=== PATIENT | female | born 1955 | race Caucasian/White ===

== ENCOUNTER 2024-03-28 15:48 | Inpatient (IN) | payer MEDICARE, OTHER, SELFPAY ==
[2024-03-28] VITALS (9 sets, daily range): BP systolic 77–115; BP diastolic 32–69; BMI 18.1
[2024-03-28 12:07] LABS: % Basophils 0.5 % (0-2); % Immature Granulocytes 0.2 % (0-0.5); % Monocytes 6.2 % (1.7-9.3); % Neutrophils 69.1 % (42.2-75.2); Absolute Eosinophils 0.4 10^3/uL (0-0.7); Absolute Lymphocytes 1.7 10^3/uL (1.2-3.4); Absolute Monocytes 0.5 10^3/uL (0.1-0.6); Hematocrit 31.9 % (37.0-47.0); Hemoglobin 9.3 g/dL (12.0-16.0); Mean Corp Hgb Conc. 29.2 g/dL (33.0-37.0); Mean Corpuscular Hgb 22.5 pg (27.0-31.0); Mean Corpuscular Volume 77.1 fL (81.0-99.0); Mean Platelet Volume 9.4 fL (7.4-10.4); Nucleated Red Blood Cells % 0 %; Platelet Count 375 10^3/uL (130-400); Red Blood Cell Count 4.14 10^6/uL (4.20-5.40); Red Cell Dist. Width 22.5 % (11.5-14.5); White Blood Cell Count 8.7 10^3/uL (4.8-10.8)
[2024-03-28 12:22] LABS: ALT (SGPT) 18 U/L (0-35); AST (SGOT) 21 U/L (14-36); Albumin 3.9 g/dl (3.5-5.0); Alkaline Phosphatase 104 U/L (38-126); Blood Urea Nitrogen 17 mg/dl (7-17); Calcium 10.2 mg/dl (8.4-10.2); Carbon Dioxide 29 mmol/L (22-30); Chloride 106 mmol/L (98-107); Estimated Creatinine Clearance 59 ml/min; Glucose 130 mg/dl (70-99); Lipase 312 U/L (23-300); Potassium 4.1 mmol/L (3.5-5.1); Sodium 140 mmol/L (135-145); Total Bilirubin 0.2 mg/dl (0.2-1.3); eGFR > 60.00
--- NOTE | 2024-03-28 12:37 | ED.GENMED ---
History of Present Illness
<Shavonne Padilla PA-C - Last Filed: 03/28/24 18:04>
General
Chief Complaint: Abdominal Pain
Source: patient
Exam Limitations: none
Time Seen by Provider: 03/28/24 12:18
Nursing documentation reviewed up to this point in time: agreed with
Travel History
Have you had any contact with someone who has COVID-19?: No
Do you have any symptoms of coronavirus? Fever > 100 degrees, chills, cough, shortness of breath, sore throat, loss of taste or smell, muscle aches, or headache?: No
History of Present Illness
History of Present Illness:
Patient is a 68-year-old female with history of stroke with residual aphasia and hemiparesis presenting to the emergency department via EMS from nursing facility for evaluation of abdominal pain. Patient unable to contribute much to history due to
significant aphasia. She does report some diffuse abdominal pain. Per prison records�patient had bright red stool. Patient has history of constipation.
Patient is able to express hunger during my initial evaluation.
Past History
<Shavonne Padilla PA-C - Last Filed: 03/28/24 18:04>
Past History
ED Past Medical History: CVA, HTN, Psychiatric (Schizophrenia, bipolar) and Other (Developmental delay)
ED Past Surgical History: Orthopedic (Right femur, neck surgery) and Other (Nasal surgery)
Social History
Tobacco: Non-smoker
Living: prison
Review of Systems
<Shavonne Padilla PA-C - Last Filed: 03/28/24 18:04>
Review of Systems
Allergies reviewed?: Yes
Unable to obtain full review of systems at this time due to: non-verbal
All Other Systems: ROS reviewed and negative except as documented in HPI and ROS
Phy Exam
<Shavonne Padilla PA-C - Last Filed: 03/28/24 18:04>
Physical Exam
Physical Exam:
Vitals: Soft BPs, otherwise vital signs stable; afebrile
General: Patient is frail appearing, in no acute distress
Skin: Warm and dry, no rashes or lesions
Head: Normocephalic, atraumatic
Eyes: Sclera nonicteric. EOMs intact. No nystagmus.
Cardiac: Regular rate and rhythm, no murmurs.
Pulm: Normal respiratory effort, no wheezes, rales, rhonchi heard on exam.
Abdomen: Soft, diffuse mild tenderness without rebound or guarding
Rectal: Soft, brown stool somewhat impacted in vault; guaiac positive; no visualized hemorrhoids or fissures
Extremities: No evidence of cyanosis or edema
Neuro: Aphasic, left hemiparesis.
Psychiatric: Normal affect.
Course
<Shavonne Padilla PA-C - Last Filed: 03/28/24 18:04>
Orders/Labs/Results
Orders:
Orders
03/28/24 Breakfast
Clear Liquid
At Your Request: Non-Participating
Does patient need a safe tray?: No
03/28/24 11:34
IV Insert/Care/Rem.- Treatment PRN
03/28/24 11:35
Electrocardiogram (*1) Urgent
Reason for Study: Abdominal Pain
EKG- Treatment ONCE
03/28/24 11:51
Complete Blood Count/With Diff Urgent
Comprehensive Metabolic Panel Urgent
Ferritin Urgent
Comment: ADD
Folate Urgent
Comment: ADD
Iron Urgent
Comment: ADD
Lipase Urgent
Total Iron Binding Urgent
Comment: ADD
Vitamin B12 Urgent
Comment: ADD
03/28/24 12:38
Type+Screen Urgent
03/28/24 12:41
CT Abd/Pel (IV only)-DH only Urgent
Comment: will not tolerate PO contrast
Reason For Exam: diffuse abdominal pain, positive hemoccult
03/28/24 14:03
Polyethylene Glycol Powder [Miralax] 17 grams PO NOW STA
03/28/24 15:30
Admit/Transfer Patient As Directed
Co-Sign Provider:
Level of Care: Inpatient admission
Assign to:: Telemetry
Physician / Group: Mata
Diagnosis: Stercoral Colitis
Reason for Telemetry: Arrhythmia
Date to Stop Telemetry: 03/31/24
Time to Stop Telemetry: 11:00
Reason for Hospitalization: Colorectal consult, IV abx
Expected length of stay greater than two midnights?: Yes
ELOS- Estimated Length of Stay in days: 3
I certify the patient meets the requirements for IP care: Yes
03/28/24 15:35
Code Status As Directed
Resuscitation Status: Do not resuscitate
Based on pt advanced directive or healthcare POA form: Yes
Physician note:: DNR per [place] paperwork
DNR Bracelet Application ONCE
03/28/24 15:46
Urinalysis Reflex To Culture Urgent
Date Specimen was Collected: 03/28/24
Time Specimen was Collected: 11:35
03/28/24 15:48
Phosphate Enema [Fleet Phosphate Enema-Adult] 135 ml RECTAL NOW STA
03/28/24 17:14
Acetaminophen [Tylenol] 650 mg PO Q4HPRN PRN
Ondansetron Injectable [Zofran] 4 mg IV Q6HPRN PRN
03/28/24 17:14
ColoRectal Surgery Consult Routine
Consulting Provider: Reid James
Was physician already notified: Yes
Activity As Directed
Activity Level: Out of Bed- Chair
I&O [Intake/ Output] As Directed
Frequency: q12h
Pneumatic Compression Sleeves As Directed
Type: Knee high
Vital Signs As Directed
Frequency: Per unit guidelines
Weight As Directed
Frequency: Daily
DX Deep Vein Thrombosis Video Routine
03/28/24 18:00
Bisacodyl [Dulcolax] 10 mg PO QPM
[place] Carbonate Regular Rel. [Eskalith Regular Release] 300 mg PO QPM
Olanzapine [Zyprexa] 5 mg PO QPM
Piperacillin/Tazo 3.375 Gram [Zosyn] 3.375 gram in 50 ml IV Q6H
Risperidone [Risperdal] 1 mg PO QPM
03/28/24 20:00
Carbamazepine [Tegretol] 400 mg PO BID
Sennosides [Senokot] 17.2 mg PO BID
03/28/24 22:00
Mirtazapine [Remeron] 15 mg PO HS
03/29/24 06:00
Basic Metabolic Panel IN AM
Complete Blood Count/No Diff IN AM
Magnesium IN AM
TSH Reflex To Free T4 IN AM
Levothyroxine [Synthroid] 75 mcg PO DAILY @ 0600
03/29/24 08:00
Polyethylene Glycol Powder [Miralax] 17 grams PO DAILY
03/29/24 12:00
[place] Carbonate [Eskalith] 150 mg PO NOON
03/31/24 11:00
DC Protocol for Telemetry ONCE
Abnormal Lab Results
03/28/24
11:51
RBC 4.14 L 10^6/uL
(4.20-5.40)
Hgb 9.3 L g/dL
(12.0-16.0)
Hct 31.9 L %
(37.0-47.0)
MCV 77.1 L fL
(81.0-99.0)
MCH 22.5 L pg
(27.0-31.0)
MCHC 29.2 L g/dL
(33.0-37.0)
RDW 22.5 H %
(11.5-14.5)
Lymphocytes % 20.0 L %
(20.5-51.1)
Glucose 130 H mg/dl
(70-99)
% Saturation 10 L %
(20-50)
Lipase 312 H U/L
(23-300)
03/28/24 11:51
03/28/24 11:51
Vital Signs
Initial and Last Documented VS:
Initial Vital Signs
Pulse Resp BP Pulse Ox
82 17 77/61 94
03/28/24 11:35 03/28/24 11:35 03/28/24 11:35 03/28/24 11:35
Last Documented Vital Signs
Temp Pulse Resp BP Pulse Ox
97.6 F 66 17 115/69 99
03/28/24 17:16 03/28/24 17:16 03/28/24 17:16 03/28/24 17:16 03/28/24 17:16
<Raheem Plaza, DO - Last Filed: 03/28/24 13:12>
Orders/Labs/Results
Orders:
Orders
03/28/24 Breakfast
Clear Liquid
At Your Request: Non-Participating
Does patient need a safe tray?: No
03/28/24 11:34
IV Insert/Care/Rem.- Treatment PRN
03/28/24 11:35
Electrocardiogram (*1) Urgent
Reason for Study: Abdominal Pain
EKG- Treatment ONCE
03/28/24 11:51
Complete Blood Count/With Diff Urgent
Comprehensive Metabolic Panel Urgent
Ferritin Urgent
Comment: ADD
Folate Urgent
Comment: ADD
Iron Urgent
Comment: ADD
Lipase Urgent
Total Iron Binding Urgent
Comment: ADD
Vitamin B12 Urgent
Comment: ADD
03/28/24 12:38
Type+Screen Urgent
03/28/24 12:41
CT Abd/Pel (IV only)-DH only Urgent
Comment: will not tolerate PO contrast
Reason For Exam: diffuse abdominal pain, positive hemoccult
03/28/24 14:03
Polyethylene Glycol Powder [Miralax] 17 grams PO NOW STA
03/28/24 15:30
Admit/Transfer Patient As Directed
Co-Sign Provider:
Level of Care: Inpatient admission
Assign to:: Telemetry
Physician / Group: Mata
Diagnosis: Stercoral Colitis
Reason for Telemetry: Arrhythmia
Date to Stop Telemetry: 03/31/24
Time to Stop Telemetry: 11:00
Reason for Hospitalization: Colorectal consult, IV abx
Expected length of stay greater than two midnights?: Yes
ELOS- Estimated Length of Stay in days: 3
I certify the patient meets the requirements for IP care: Yes
03/28/24 15:35
Code Status As Directed
Resuscitation Status: Do not resuscitate
Based on pt advanced directive or healthcare POA form: Yes
Physician note:: DNR per [place] paperwork
DNR Bracelet Application ONCE
03/28/24 15:46
Urinalysis Reflex To Culture Urgent
Date Specimen was Collected: 03/28/24
Time Specimen was Collected: 11:35
03/28/24 15:48
Phosphate Enema [Fleet Phosphate Enema-Adult] 135 ml RECTAL NOW STA
03/28/24 17:14
Acetaminophen [Tylenol] 650 mg PO Q4HPRN PRN
Ondansetron Injectable [Zofran] 4 mg IV Q6HPRN PRN
03/28/24 17:14
ColoRectal Surgery Consult Routine
Consulting Provider: Reid James
Was physician already notified: Yes
Activity As Directed
Activity Level: Out of Bed- Chair
I&O [Intake/ Output] As Directed
Frequency: q12h
Pneumatic Compression Sleeves As Directed
Type: Knee high
Vital Signs As Directed
Frequency: Per unit guidelines
Weight As Directed
Frequency: Daily
DX Deep Vein Thrombosis Video Routine
03/28/24 18:00
Bisacodyl [Dulcolax] 10 mg PO QPM
[place] Carbonate Regular Rel. [Eskalith Regular Release] 300 mg PO QPM
Olanzapine [Zyprexa] 5 mg PO QPM
Piperacillin/Tazo 3.375 Gram [Zosyn] 3.375 gram in 50 ml IV Q6H
Risperidone [Risperdal] 1 mg PO QPM
03/28/24 20:00
Carbamazepine [Tegretol] 400 mg PO BID
Sennosides [Senokot] 17.2 mg PO BID
03/28/24 22:00
Mirtazapine [Remeron] 15 mg PO HS
03/29/24 06:00
Basic Metabolic Panel IN AM
Complete Blood Count/No Diff IN AM
Magnesium IN AM
TSH Reflex To Free T4 IN AM
Levothyroxine [Synthroid] 75 mcg PO DAILY @ 0600
03/29/24 08:00
Polyethylene Glycol Powder [Miralax] 17 grams PO DAILY
03/29/24 12:00
[place] Carbonate [Eskalith] 150 mg PO NOON
03/31/24 11:00
DC Protocol for Telemetry ONCE
Abnormal Lab Results
03/28/24
11:51
RBC 4.14 L 10^6/uL
(4.20-5.40)
Hgb 9.3 L g/dL
(12.0-16.0)
Hct 31.9 L %
(37.0-47.0)
MCV 77.1 L fL
(81.0-99.0)
MCH 22.5 L pg
(27.0-31.0)
MCHC 29.2 L g/dL
(33.0-37.0)
RDW 22.5 H %
(11.5-14.5)
Lymphocytes % 20.0 L %
(20.5-51.1)
Glucose 130 H mg/dl
(70-99)
% Saturation 10 L %
(20-50)
Lipase 312 H U/L
(23-300)
03/28/24 11:51
03/28/24 11:51
Vital Signs
Initial and Last Documented VS:
Initial Vital Signs
Pulse Resp BP Pulse Ox
82 17 77/61 94
03/28/24 11:35 03/28/24 11:35 03/28/24 11:35 03/28/24 11:35
Last Documented Vital Signs
Temp Pulse Resp BP Pulse Ox
97.6 F 66 17 115/69 99
03/28/24 17:16 03/28/24 17:16 03/28/24 17:16 03/28/24 17:16 03/28/24 17:16
<Shavonne Padilla PA-C - Last Filed: 03/28/24 18:04>
MDM/Problems Addressed
Differential Diagnosis Includes:
Not limited to: Internal/external hemorrhoid, diverticulosis, malignancy, anal fissure, gastric ulcer, constipation, bowel obstruction
MDM/Problems Addressed:
68-year-old female with significant aphasia and left-sided hemiparesis status post stroke [facility] with abdominal pain and report of bright red stool. Patient unable to contribute much to history due to aphasia. Exam as above.
Abdomen soft with diffuse mild tenderness. Rectal exam does show soft, brown stool which was guaiac positive. Attempted rectal disimpaction with small amount of stool removed, the patient did not tolerate well and had to stop. Patient did have
soft BPs on arrival with appropriate improvement following IV fluids. Otherwise vital signs are stable.
Labs noted. She is anemic with a hemoglobin of 9.3, although she does appear to have some degree of chronic anemia. in comparison to prior labs, hemoglobin is increased from last hemoglobin approximately 6 months ago. MCV of 71�likely an iron
deficiency anemia possibly due to lower GI bleed given guaiac positive stool. Otherwise no clinically significant abnormalities. Will check CT abdomen given poor history. I suspect abdominal pain is likely related to large amount of stool in
rectum and associated constipation. Given anemia and guaiac positive stool�will plan to admit patient to hospitalist for minor lower GI bleed and further hemoglobin trending. CT pending.
CT shows large rectal stool bolus with findings suggesting possible developing stercoral colitis. Patient will be admitted to hospitalist for hemoglobin trending due to lower GI bleed and management of constipation. She may possibly require
antibiotics for colitis. Discussed with hospitalist.
Chronic conditions affecting care:
Prior CVA resulting in aphasia
Acute Exacerbation and/or Progression of Chronic Illness:
N/A
<Shavonne Padilla PA-C - Last Filed: 03/28/24 18:04>
*Radiology
Radiology exam reviewed: radiology read reviewed
*Pulse Oximetry
Patient hypoxic: no
*EKG
Interpreted by ED Provider?: Yes
EKG Intrepretation Date: 03/28/24
Interpretation: normal
Comparison EKG: changes noted
Heart Rate: 79
Rate: normal
Rhythm: sinus
QRS Pattern: low voltage
Ischemia: no ischemia
*Carroting Machine Offbearer Interpretation
Rate: Carroting Machine Offbearer- N/A
*Critical Care Note
Total Time (30-74mins, 75-104mins- exclusive of procedures): Not Applicable
Data Reviewed
Review of Other/Old Records Reveals: Labs and Records
Source: ambulance crew and previous hospital records
<Shavonne Padilla PA-C - Last Filed: 03/28/24 18:04>
Patient Management
Discussion with other providers: Hospitalist
Escalation/DeEscalation of care consider admission/obs:
Patient with history of bright red blood per rectum�although hemoglobin appears similar to baseline, guaiac positive stool will admit for probable minor lower GI bleeding hemoglobin
ED Attending Note
<Shavonne Padilla PA-C - Last Filed: 03/28/24 18:04>
-
Portions of this chart may have been created with voice recognition software.� Occasional wrong word or��sound alike� substitutions may have occurred due to the inherent limitations of voice recognition software.
<Raheem Plaza DO - Last Filed: 03/28/24 13:12>
ED Attending Note
Patient seen and examined by attending physician: Yes
I performed the substantive portion of visit, reviewed & personally made and approve the management plan that is documented in note by myself or NASEEM.: Yes
ED Attending Note:
I have seen and evaluated the patient with a [id number] encounter. I have spoken to the advance practicer provider and involved in the medical history, the physical exam, medical decision making.
Evaluation and management service: agree unless noted differently below.
Results interpretation: agree unless noted differently below.
Focused HPI: 68-year-old female presenting with abdominal pain and bright red rectal bleeding per EMS.
Physical exam: On exam, patient does have aphasia which is in her prior medical history. She is able to communicate somewhat. She does states she is hungry. Abdomen soft. Minimal suprapubic to left lower quadrant pain. No rebound. Rectal exam
performed showing brown stool that is guaiac
Medical Decision Making: Given the bright red rectal bleeding that is now showing brown, patient likely has diverticulosis versus internal hemorrhoid. Given the mild abdominal pain, will obtain CT abdomen/pelvis. Patient is baseline anemic. Will
likely admit on the basis of abdominal pain and rectal bleeding
Discharge Plan
Departure
Patient Disposition: Admit
Date of Disposition: 03/28/24
Time of Disposition: 13:59
Presentation/result/management discussed w/ accepting MD/DO: Hospitalist
Discharge Problem:
Acute lower GI bleeding
Interventions
Interventions:
*Risk Screen - Suicide Last Done: 03/28/24 11:35
*General Assessment Last Done: 03/28/24 11:35
*Neglect/Abuse Screening Last Done: 03/28/24 11:35
ED- Fall Risk Assessment Last Done: 03/28/24 11:52
*Nursing Disposition Last Done: 03/28/24 16:49
AZ-Stmuuv-Sqaljdaosq Assessment Last Done: 03/28/24 11:52
Discharge Date and Time
Discharge Date/Time: 03/28/24 16:50
[2024-03-28 13:18] LABS: Anisocytosis Slight
[2024-03-28 13:54] LABS: Normal RBC Morphology No
[2024-03-28] MEDS: MIRALAX 17 GRAMS PO ×2 (14:38→21:31)
--- NOTE | 2024-03-28 15:39 | HPS.HSE ---
Family Physician
-
Family Physician: Mu Flores
Chief Complaint
-
Abdominal Pain
History of Present Illness
Patient is a 68 y/o female past medical history of ischemic stroke with residual aphasia and left hemiparesis who presents with abdominal pain. Patient is a limited historian due to significant aphasia. Apparently she as sent from the [facility] for
complaints of abdominal pain, and staff noted bright red blood per rectum. CT scan in ED showed stool burden with stercoral colitis. ED staff found soft brown stool on exam. Upon my evaluation she is able to tell me she is hungry and asked to
refill her water cup.
Medical History
Past Medical History
Past Medical History: Reports Other
Additional Past Medical History:
Ischemic Stroke with Residual Aphasia and Left Hemiplegia
Dysphagia
Seizure Disorder
Mood Disorder
Hypothyroidism
Past Surgical History: Reports Other
Additional Past Surgical History:
Right Hip ORIF
Neck Surgery
Social History
Unable to obtain full social history at this time due to: Patient Non-verbal
Living: Group Home
Family History
Family History: Unable to Obtain
Allergies / Home Medications
Allergies reflects when Allergies were last updated in [facility].
Home Medications with original date entered in [facility]
Allergy/Medication List:
Allergies
Allergy/AdvReac Type Severity Reaction Status Date / Time
aspirin Allergy Unknown Verified 08/12/23 13:22
ciprofloxacin [From Cipro] Allergy Unknown Verified 08/12/23 13:22
ciprofloxacin HCl Allergy Unknown Verified 08/12/23 13:22
[From Cipro]
divalproex sodium Allergy Unknown Verified 08/12/23 13:22
[From Depakote]
valproic acid Allergy Unknown Verified 08/12/23 13:22
adrenergic blocking agents Allergy Unknown Uncoded 03/21/21 15:12
Home Medications
thiamine HCl (vitamin B1) 100 mg tablet 100 mg PO NOON Supplement 04/11/14
acetaminophen 325 mg tablet 650 mg PO Q6HPRN PRN elevated temperature>100 05/08/16
bisacodyl 10 mg rectal suppository (OneLAX Bisacodyl) 10 mg NE DAILYPRN PRN if MOM ineffective 05/08/16
bisacodyl 5 mg tablet,delayed release 5 mg PO QPM Constipation 05/08/16
acetaminophen 325 mg tablet 650 mg (2 x 325 mg) PO Q4HPRN PRN mild pain ##0 05/12/16
levothyroxine 75 mcg tablet 75 mcg PO DAILY Thyroid 03/21/21
lithium carbonate 150 mg capsule 150 mg PO NOON Mental Health/Anxiety 03/21/21
mirtazapine 15 mg tablet 15 mg PO HS Mental Health/Anxiety 03/21/21
risperidone 1 mg tablet 1 mg PO QPM Mental Health/Anxiety 03/21/21
carbamazepine 200 mg tablet 400 mg PO BID Seizures 08/12/23
docusate sodium 100 mg capsule (Colace) 100 mg PO BID Constipation 08/12/23
ferrous sulfate 325 mg (65 mg iron) tablet 325 mg PO AC Supplement 08/12/23
loperamide 2 mg tablet (Imodium A-D) 2 mg PO Q6HPRN PRN diarrhea 08/12/23
magnesium oxide 400 mg PO NOON Supplement 08/12/23
metronidazole 1 % topical cream 1 applic topical [id number] PRN rash 08/12/23
olanzapine 5 mg tablet 5 mg PO QPM Mental Health/Anxiety 08/12/23
propranolol 20 mg tablet 20 mg PO DAILY Blood Pressure 08/12/23
Eucerin 1 applic topical Q6HPRN PRN dry skin 03/28/24
calcium carbonate 1,000 mg PO Q8HPRN PRN indigestion 03/28/24
carbamide peroxide 6.5 % ear drops (Debrox) 5 drp LEFT EAR BID 03/28/24
cholecalciferol (vitamin D3) 50 mcg (2,000 unit) tablet 50 mcg PO NOON 03/28/24
cyanocobalamin (vitamin B-12) 500 mcg tablet 500 mcg PO DAILY 03/28/24
lithium carbonate 300 mg tablet 300 mg PO QPM 03/28/24
magnesium hydroxide 400 mg/5 mL oral suspension (Milk of Magnesia) 30 ml PO [id number] PRN constipation 03/28/24
polyethylene glycol 3350 17 gram oral powder packet (Miralax) 17 g PO DAILY 03/28/24
sennosides 8.6 mg-docusate sodium 50 mg tablet (Senna-S) 1 tab-cap PO NOON 03/28/24
sennosides 8.6 mg-docusate sodium 50 mg tablet (Senna-S) 2 tab-cap PO QPM 03/28/24
Review of Systems
-
Unable to obtain full review of systems at this time due to: Patient Non-verbal
Physical Exam
Vital Signs
Vital Signs
Pulse Resp BP Pulse Ox
73 9 107/51 99
03/28/24 13:30 03/28/24 13:30 03/28/24 13:00 03/28/24 13:30
Physical Exam
General: No Apparent Distress and Comfortable
HEENT: Anicteric and Moist mucous membranes
Respiratory: Clear and Non Labored Respirations
Cardiac: S1/S2 and Regular Rhythm
GI: Soft, Tender (Left lower quadrant without rebound or guarding) and Other (Hyperactive bowel sounds)
Rectal: Deferred by Provider
Musculoskeletal: No Clubbing, No Cyanosis and Other (Left upper ext contracture)
Skin: Warm and Dry
Neuro: Awake, Alert and Other (Unable to assess orientation due to aphasia; Left hemiparesis)
Laboratory Results
-
03/28/24 11:51
03/28/24 11:51
Laboratory Results
Total Bilirubin 0.2 mg/dl (0.2-1.3) 03/28/24 11:51
AST 21 U/L (14-36) 03/28/24 11:51
ALT 18 U/L (0-35) 03/28/24 11:51
Alkaline Phosphatase 104 U/L (38-126) 03/28/24 11:51
Lipase 312 U/L (23-300) H 03/28/24 11:51
Data Reviewed
-
CT Scan: Report Reviewed by me
Lab Data: Labs Reviewed by me
Impression/Plan
-
Stercoral Colitis
-Consult Colorectal Surgery
-Continue Zosyn
-Allow clear liquids
-Give Fleet Enema Now
-Increase bowel regimen
Chronic Anemia
-Check iron, ferritin, TIBC, Folate, Vit B12
Ischemic Stroke with Residual Aphasia, Left Hemiplegia and Dysphagia
-Patient maintained on mechanical soft solids with thin liquids
Seizure Disorder
-Continue carbamazepine
Mood Disorder
-Continue mirtazapine, olanzapine, risperidone and lithium
Hypertension
-Hold propranolol
Hypothyroidism
-Continue levothyroxine
DVT proph: SCDs
Code Status: DNR per [place] paperwork
--- NOTE | 2024-03-28 17:30 | PTCARENOTE ---
Rec'd Pt From ED to Room 431, [address]. Pt pulled over from stretcher to bed. Pt is AOOx2-3, prior CVA with aphasia but able to identify herself, her month/day and hospital. Oriented to room to with call leo in place.
[2024-03-28 17:46] LABS: Iron 41 ug/dl (37-170)
[2024-03-28 17:47] LABS: Ferritin 14.6 ng/ml (11.1-264.0)
[2024-03-28 17:56] LABS: Percent Saturation 10 % (20-50); Total Iron Binding Capacity 375 ug/dl (265-497)
--- NOTE | 2024-03-28 18:03 | W.PN.UPDATE ---
Addendum entered and electronically signed by Michael August MD 03/28/24 18:25:
Hold off on gastroenterology consult for now.
Original Note:
Update Note
Progress Note Update
This note serves as an addendum to the H&P by Melissa Newell PA-C, on March 28, 2024.
68 y/o female with past medical history of ischemic stroke with residual aphasia and left hemiparesis who presented with abdominal pain. Patient is a limited historian due to significant aphasia. Apparently she was sent from the [facility] for
complaints of abdominal pain, and staff noted bright red blood per rectum. CT scan in ED showed stool burden with stercoral colitis. ED staff found soft brown stool on exam. Patient was nonverbal.
Vital Signs
Afebrile
SBP initially in the 70s, improved to 110s -- as per ER note, IV fluids given with improvement in blood pressure
Oxygen saturation 90s on room air
HR and RR okay
Physical Exam
General: No Apparent Distress and Comfortable
HEENT: Normocephalic
Respiratory: Clear and Non Labored Respirations
Cardiac: S1/S2 and Regular Rhythm
GI: Soft, Tender (Left lower quadrant without rebound or guarding) and Other (Hyperactive bowel sounds)
Musculoskeletal: No Cyanosis and Other (Left upper ext contracture)
Skin: Warm and Dry
Neuro: Awake, Alert and Other (Unable to assess orientation due to aphasia; Left hemiparesis)
Assessment/Plan
Stercoral Colitis
Fecal Occult Blood Positive
Bright Red Blood Per Rectum, prior to arrival, as per patient's long-term
-Consulted Colorectal Surgery, recommendations appreciated
-Gastroenterology consulted, recommendations appreciated
-Continue Zosyn
-Allow clear liquids
-Hold bowel regimen until surgery eval to avoid causing increased pressure of the stool onto the colon
-Surgery will try to disimpact tonight
Chronic Anemia
-Check iron, ferritin, TIBC, Folate, Vit B12
Ischemic Stroke with Residual Aphasia, Left Hemiplegia and Dysphagia
-Patient maintained on mechanical soft solids with thin liquids
Seizure Disorder
-Continue carbamazepine
Mood Disorder
-Continue mirtazapine, olanzapine, risperidone and lithium
Hypertension
-Hold propranolol
Hypothyroidism
-Continue levothyroxine
DVT proph: SCDs
Code Status: DNR per [place] paperwork
[2024-03-28 18:18] LABS: Folate 5.9 ng/ml (2.76-20); Vitamin B12 421 pg/ml (239-931)
[2024-03-28] MEDS: RISPERDAL 1 MG PO (18:24)
[2024-03-28] MEDS: ZYPREXA 5 MG PO (18:24)
[2024-03-28] MEDS: FLEET PHOSPHATE ENEMA-ADULT 135 ML RECTAL (18:24)
[2024-03-28] MEDS: ZOSYN 50 IV (18:25)
[2024-03-28] MEDS: ESKALITH 300 MG PO (18:26)
--- NOTE | 2024-03-28 18:59 | CON.CRS ---
Consultation
-
Performing Provider: Reid James MD
Medical History
-
History of Present Illness:
Patient is a 68-year-old female with developmental delay, [facility] resident, CVA (resultant deficit of aphasia), HTN, schizophrenia, bipolar, hypothyroid who [facility] from the [facility] with severe constipation. History is largely from the
EMR as the patient is dysphasic with a component of developmental delay. She denies abdominal pain. Per the record, she was [facility] from the [facility] with abdominal pain, constipation and some blood in the stool. In the ED, her WBC was 8.7, Cr
0.7, CT showing large burden of stool within the rectum with developing stercoral colitis. She is afebrile and normal vital signs.
Past Medical History
Past Medical History: Other (As above)
Past Surgical History: Other (Right femur, neck surgery, no surgery)
Social History
Living: Halfway
Family History
Family History: Unable to Obtain
Allergies / Home Medications
Allergy/AdvReac Type Severity Reaction Status Date / Time
aspirin Allergy Unknown Verified 08/12/23 13:22
ciprofloxacin [From Cipro] Allergy Unknown Verified 08/12/23 13:22
ciprofloxacin HCl Allergy Unknown Verified 08/12/23 13:22
[From Cipro]
divalproex sodium Allergy Unknown Verified 08/12/23 13:22
[From Depakote]
valproic acid Allergy Unknown Verified 08/12/23 13:22
adrenergic blocking agents Allergy Unknown Uncoded 03/21/21 15:12
�Medication �Instructions �Recorded �Confirmed �Type
thiamine HCl (vitamin B1) 100 mg 100 mg PO NOON Supplement 04/11/14 03/28/24 History
tablet
acetaminophen 325 mg tablet 650 mg PO Q6HPRN PRN elevated 05/08/16 03/28/24 History
temperature>100
bisacodyl 10 mg rectal suppository 10 mg [place] DAILYPRN PRN if MOM 05/08/16 03/28/24 History
(OneLAX Bisacodyl) ineffective
bisacodyl 5 mg tablet,delayed 5 mg PO QPM Constipation 05/08/16 03/28/24 History
release
acetaminophen 325 mg tablet 650 mg (2 x 325 mg) PO Q4HPRN PRN 05/12/16 03/28/24 Rx
mild pain ##0
levothyroxine 75 mcg tablet 75 mcg PO DAILY Thyroid 03/21/21 03/28/24 History
lithium carbonate 150 mg capsule 150 mg PO NOON Mental 03/21/21 03/28/24 History
Health/Anxiety
mirtazapine 15 mg tablet 15 mg PO HS Mental Health/Anxiety 03/21/21 03/28/24 History
risperidone 1 mg tablet 1 mg PO QPM Mental Health/Anxiety 03/21/21 03/28/24 History
carbamazepine 200 mg tablet 400 mg PO BID Seizures 08/12/23 03/28/24 History
docusate sodium 100 mg capsule 100 mg PO BID Constipation 08/12/23 03/28/24 History
(Colace)
ferrous sulfate 325 mg (65 mg 325 mg PO AC Supplement 08/12/23 03/28/24 History
iron) tablet
loperamide 2 mg tablet (Imodium 2 mg PO Q6HPRN PRN diarrhea 08/12/23 03/28/24 History
A-D)
magnesium oxide 400 mg PO NOON Supplement 08/12/23 03/28/24 History
metronidazole 1 % topical cream 1 applic topical [id number] PRN rash 08/12/23 03/28/24 History
olanzapine 5 mg tablet 5 mg PO QPM Mental Health/Anxiety 08/12/23 03/28/24 History
propranolol 20 mg tablet 20 mg PO DAILY Blood Pressure 08/12/23 03/28/24 History
Eucerin 1 applic topical Q6HPRN PRN dry 03/28/24 03/28/24 History
skin
calcium carbonate 1,000 mg PO Q8HPRN PRN indigestion 03/28/24 03/28/24 History
carbamide peroxide 6.5 % ear drops 5 drp LEFT EAR BID ear wax removal 03/28/24 03/28/24 History
(Debrox)
cholecalciferol (vitamin D3) 50 50 mcg PO NOON Supplement 03/28/24 03/28/24 History
mcg (2,000 unit) tablet
cyanocobalamin (vitamin B-12) 500 500 mcg PO DAILY Supplement 03/28/24 03/28/24 History
mcg tablet
lithium carbonate 300 mg tablet 300 mg PO QPM Mental Health/Anxiety 03/28/24 03/28/24 History
magnesium hydroxide 400 mg/5 mL 30 ml PO [id number] PRN constipation 03/28/24 03/28/24 History
oral suspension (Milk of Magnesia)
polyethylene glycol 3350 17 gram 17 g PO DAILY Constipation 03/28/24 03/28/24 History
oral powder packet (Miralax)
sennosides 8.6 mg-docusate sodium 1 tab-cap PO NOON Constipation 03/28/24 03/28/24 History
50 mg tablet (Senna-S)
sennosides 8.6 mg-docusate sodium 2 tab-cap PO QPM Constipation 03/28/24 03/28/24 History
50 mg tablet (Senna-S)
Review of Systems
-
Unable to obtain full review of systems at this time due to: Other (Patient with developmental delay and poor historian)
A 10 point review of systems was completed, and was negative except as per HPI.
Physical Exam
Vital Signs
Temp 97.6 F 03/28/24 17:16
Pulse 66 03/28/24 17:16
Resp Rate 17 03/28/24 17:16
Blood pressure 115/69 03/28/24 17:16
SaO2 99 03/28/24 17:16
03/27/24 03/28/24 03/29/24
06:59 06:59 06:59
Actual Weight 47.899 kg
Body Mass Index (BMI) 18.1
Lab Results / Allergies
03/28/24 11:51
03/28/24 11:51
WBC 8.7 10^3/uL (4.8-10.8) 03/28/24 11:51
Hgb 9.3 g/dL (12.0-16.0) L 03/28/24 11:51
Hct 31.9 % (37.0-47.0) L 03/28/24 11:51
Plt Count 375 10^3/uL (130-400) 03/28/24 11:51
Abs Immat Gran (auto) 0.0 10^3/uL (0-0.05) 03/28/24 11:51
Neutrophils % 69.1 % (42.2-75.2) 03/28/24 11:51
Allergy/AdvReac Type Severity Reaction Status Date / Time
aspirin Allergy Unknown Verified 08/12/23 13:22
ciprofloxacin [From Cipro] Allergy Unknown Verified 08/12/23 13:22
ciprofloxacin HCl Allergy Unknown Verified 08/12/23 13:22
[From Cipro]
divalproex sodium Allergy Unknown Verified 08/12/23 13:22
[From Depakote]
valproic acid Allergy Unknown Verified 08/12/23 13:22
adrenergic blocking agents Allergy Unknown Uncoded 03/21/21 15:12
Physical Exam
General: Well Developed, Well Nourished, No Apparent Distress and Other
HEENT: Normocephalic, Tracheotomy and Other (Adentulous)
GI: Soft, Non Tender, Non Distended and Other (No rebound or guarding)
Rectal: Brown (No masses palpated within the anal canal, good sphincter tone, no gross blood) and Other (Performed disimpaction, removed significant amount of hard impacted stool with no signs of gross blood; nurse at the bedside as grades 1 6 tutor)
Skin: Warm and Dry
Neuro: Awake and Alert
Data Reviewed
-
CT Scan: Image Personally Visualized and interpreted, Discussed with Physician and Discussed with Patient
Labs: Labs Reviewed by me and Discussed with Physician
Assessment / Plan
-
68-year-old female with developmental delay, [facility] resident, CVA (resultant deficit of aphasia), HTN, schizophrenia, bipolar, hypothyroid who [facility] the [facility] with severe const[facility]. History is largely from the EMR as the
patient is dysphasic with a component of developmental delay. She states that she has bladder pain and is in no distress. Per the record, she was [facility] the [facility] with abdominal pain, constipation and some blood in the stool. In the ED,
her WBC was 8.7, Cr 0.7, CT showing large burden of stool within the rectum with developing stercoral colitis. AFVSS
� 'Developing' stercoral colitis per CT
�S/p disimpaction with moderate amount hard of stool removed, no blood
�Give fleets enema and MiraLAX tonight; continue Colace twice daily
�Abdominal exam reassuring; no surgical intervention currently indicated
�Continue IV Zosyn
� Okay for clears
� Okay for DVT PPx
� Appreciate hospitalist
--- NOTE | 2024-03-28 19:31 | W.PN.UPDATE ---
Update Note
Progress Note Update
Colace 100 mg PO BID and Miralax daily added to Bowel regimen per Dr. Cordova's instructions
[2024-03-28 20:15] LABS: Lactic Acid 1.3 mmol/L (0.7-2.0)
[2024-03-28] MEDS: REMERON 15 MG PO (21:31)
[2024-03-28] MEDS: COLACE 100 MG PO (21:31)
[2024-03-28] MEDS: TEGRETOL 400 MG PO (21:31)
[2024-03-29] MEDS: ZOSYN 50 IV ×3 (00:11→12:31)
[2024-03-29 03:07] VITALS: BP 99/60
[2024-03-29] MEDS: SYNTHROID 75 MCG PO (05:59)
[2024-03-29 06:00] VITALS: BMI 17.9
[2024-03-29 08:00] VITALS: BP 115/66
--- NOTE | 2024-03-29 09:02 | W.PN.CRS1 ---
Today's Communication / Plan
-
continue bowel regimen
okay to resume diet
will s/o
Assessment/Plan
-
68-year-old female with developmental delay, [facility] resident, CVA (resultant deficit of aphasia), HTN, schizophrenia, bipolar, hypothyroid who presents from the [facility] with severe constipation
1. Vitals normal, labs pending.
2. Benign abdominal exam. Had bowel movements overnight.
3. No plans for surgery or interventions at this time.
4. Would recommend continuing in the following: Colace BID, Miralax daily, anal suppository in PM, enemas PRN.
5. Okay to resume home diet.
6. Will sign off, please contact us if further issues arise.
Subjective Data
Subjective Data
Date of Service: March 29, 2024
Patient states she feels well. She has no complaints. She is giving the 'thumbs up' sign when asked how she feels. Per RN, she had two large bowel movements overnight.
Objective Data
-
Vital Signs
Temp Pulse Resp BP Pulse Ox
98.0 F 79 20 99/60 93
03/29/24 03:07 03/29/24 03:07 03/29/24 03:07 03/29/24 03:07 03/29/24 03:07
Intake & Output
03/28/24 03/29/24 03/30/24
06:59 06:59 06:59
Intake Total 820 / 820
Balance 820 / 820
Intake:
Oral fluids 720 / 720
IV fluids (Total) 50 / 50
IV piggybacks 50 / 50
Other:
How many times incontinent 3
SATURATED amount urine
Physical Exam
-
General: No Acute Distress and AOx3
Abdomen: Soft, Non Distended and Non Tender
Skin: Warm and Dry
[2024-03-29] MEDS: TEGRETOL 400 MG PO (10:00)
[2024-03-29] MEDS: MIRALAX 17 GRAMS PO (10:01)
[2024-03-29] MEDS: COLACE 100 MG PO (10:01)
[2024-03-29 10:55] LABS: Hematocrit 30.7 % (37.0-47.0); Hemoglobin 8.8 g/dL (12.0-16.0); Mean Corp Hgb Conc. 28.7 g/dL (33.0-37.0); Mean Corpuscular Hgb 22.8 pg (27.0-31.0); Mean Corpuscular Volume 79.5 fL (81.0-99.0); Mean Platelet Volume 10.1 fL (7.4-10.4); Platelet Count 375 10^3/uL (130-400); Red Blood Cell Count 3.86 10^6/uL (4.20-5.40); Red Cell Dist. Width 22.6 % (11.5-14.5); White Blood Cell Count 10.1 10^3/uL (4.8-10.8)
[2024-03-29 11:00] VITALS: BP 103/59
[2024-03-29 11:09] LABS: Blood Urea Nitrogen 11 mg/dl (7-17); Calcium 9.7 mg/dl (8.4-10.2); Carbon Dioxide 24 mmol/L (22-30); Chloride 106 mmol/L (98-107); Estimated Creatinine Clearance 51 ml/min; Glucose 185 mg/dl (70-99); Magnesium 2.2 mg/dl (1.6-2.3); Potassium 4.3 mmol/L (3.5-5.1); Sodium 139 mmol/L (135-145); eGFR > 60.00
[2024-03-29 11:35] LABS: TSH Reflex To Free T4 3.12 uIU/ml (0.47-4.68)
[2024-03-29 12:03] LABS: Urine Albumin Negative (Neg - Trace); Urine Bilirubin Negative (Negative); Urine Character Clear (Clear); Urine Color Yellow; Urine Glucose Negative (Negative); Urine Ketone Negative (Negative); Urine Leukocyte Negative (Negative); Urine Nitrite Negative (Negative); Urine Occult Blood Negative (Negative); Urine Specific Gravity 1.005 (<1.030); Urine Urobilinogen Negative (Neg - 1+)
[2024-03-29] MEDS: ESKALITH 150 MG PO (12:31)
--- NOTE | 2024-03-29 13:06 | W.PN.HOSP.TC ---
Today's Communication/Plan
-
Discharge today
Assessment / Plan
Assessment / Plan
Physical Exam
General: No Apparent Distress and Comfortable
HEENT: Normocephalic
Respiratory: Clear and Non Labored Respirations
Cardiac: S1/S2 and Regular Rhythm
GI: Soft, Nontender. Positive bowel sounds.
Musculoskeletal: No Cyanosis and Other (Left upper ext contracture)
Skin: Warm and Dry
Neuro: Awake, Alert and Other (Unable to assess orientation due to aphasia; Left hemiparesis)
Assessment/Plan
'Developing' stercoral colitis per CT; now having bowel function status post disimpaction with moderate amount hard of stool removed, no blood
Fecal Occult Blood Positive
Bright Red Blood Per Rectum, prior to arrival, as per patient's shelter
-Consulted Colorectal Surgery, recommendations appreciated
-Gastroenterology consulted, recommendations appreciated
-Diet as tolerated -- low residue
-Surgery performed disimpaction
-Continue bowel regimen: Colace twice daily, MiraLAX daily, Dulcolax nightly as needed
-Augmentin 875 mg Q12H for 6 more days given allergies to Cipro
Chronic Anemia
-Recheck iron studies outpatient
-Recheck Vitamin B12 outpatient
Ischemic Stroke with Residual Aphasia, Left Hemiplegia and Dysphagia
-Patient maintained on mechanical soft solids with thin liquids
Seizure Disorder
-Continue carbamazepine
Mood Disorder
-Continue mirtazapine, olanzapine, risperidone and lithium
Hypertension
-Hold propranolol
Hypothyroidism
-Continue levothyroxine
DVT proph: SCDs
Code Status: DNR per OR paperwork
More than 30 minutes spent in discharge including
Final examination of the patient
Summarizing hospital stay
Instructions for continuing care to all relevant caregivers
Preparation of discharge records, prescriptions, and referral forms
Total time spent (in minutes): 40
Anticipated Discharge: Today
Subjective/Interval History
-
Date of Service: March 29, 2024
Patient was seen and examined. She appeared to be enjoying her breakfast and denied any new complaints, although she was nonverbal.
Objective Data
-
Labs:
Laboratory Results
03/29/24
09:55
WBC 10.1
Hgb 8.8 L
Hct 30.7 L
Plt Count 375
Sodium 139
Potassium 4.3
Chloride 106
Carbon Dioxide 24
BUN 11
Creatinine 0.8
Glucose 185 H
Calcium 9.7
Vital Signs:
Vital Signs
Temp Pulse Resp BP Pulse Ox
98 F 81 16 103/59 95
03/29/24 11:00 03/29/24 11:00 03/29/24 11:00 03/29/24 11:00 03/29/24 11:00
I&O
03/28/24 03/29/24 03/30/24
06:59 06:59 06:59
Intake Total 820 / 820
Balance 820 / 820
--- NOTE | 2024-03-29 14:17 | W.DS.TRANS ---
DC Summary - Lead Handler
-
Discharge Instructions:
Discharge Diagnosis/Procedures 'Developing' stercoral colitis per CT; now
having bowel function status post disimpaction
with moderate amount hard of stool removed, no
blood
Fecal Occult Blood Positive
Bright Red Blood Per Rectum, prior to arrival,
as per patient's jail
Chronic Anemia
Ischemic Stroke with Residual Aphasia, Left
Hemiplegia and Dysphagia
Seizure Disorder
Mood Disorder
Hypertension
Hypothyroidism
Diet As tolerated
Activity As tolerated
Driving Restrictions No driving
Other Services PT,OT
Instructions:
Stand-Alone Forms:
Changes to Home Medications: Yes
Discharge Medications:
DC Medications w/original date entered in [employer]
thiamine HCl (vitamin B1) 100 mg tablet 100 mg PO NOON Supplement 04/11/14
acetaminophen 325 mg tablet 650 mg PO Q6HPRN PRN elevated temperature>100 05/08/16
levothyroxine 75 mcg tablet 75 mcg PO DAILY Thyroid 03/21/21
lithium carbonate 150 mg capsule 150 mg PO NOON Mental Health/Anxiety 03/21/21
mirtazapine 15 mg tablet 15 mg PO HS Mental Health/Anxiety 03/21/21
risperidone 1 mg tablet 1 mg PO QPM Mental Health/Anxiety 03/21/21
carbamazepine 200 mg tablet 400 mg PO BID Seizures 08/12/23
docusate sodium 100 mg capsule (Colace) 100 mg PO BID Constipation 08/12/23
ferrous sulfate 325 mg (65 mg iron) tablet 325 mg PO AC Supplement 08/12/23
loperamide 2 mg tablet (Imodium A-D) 2 mg PO Q6HPRN PRN diarrhea 08/12/23
magnesium oxide 400 mg PO NOON Supplement 08/12/23
metronidazole 1 % topical cream 1 applic topical [id number] PRN rash 08/12/23
olanzapine 5 mg tablet 5 mg PO QPM Mental Health/Anxiety 08/12/23
propranolol 20 mg tablet 20 mg PO DAILY Blood Pressure 08/12/23
Eucerin 1 applic topical Q6HPRN PRN dry skin 03/28/24
calcium carbonate 1,000 mg PO Q8HPRN PRN indigestion 03/28/24
carbamide peroxide 6.5 % ear drops (Debrox) 5 drp LEFT EAR BID ear wax removal 03/28/24
cholecalciferol (vitamin D3) 50 mcg (2,000 unit) tablet 50 mcg PO NOON Supplement 03/28/24
cyanocobalamin (vitamin B-12) 500 mcg tablet 500 mcg PO DAILY Supplement 03/28/24
lithium carbonate 300 mg tablet 300 mg PO QPM Mental Health/Anxiety 03/28/24
magnesium hydroxide 400 mg/5 mL oral suspension (Milk of Magnesia) 30 ml PO [id number] PRN constipation 03/28/24
sennosides 8.6 mg-docusate sodium 50 mg tablet (Senna-S) 1 tab-cap PO NOON Constipation 03/28/24
sennosides 8.6 mg-docusate sodium 50 mg tablet (Senna-S) 2 tab-cap PO QPM Constipation 03/28/24
amoxicillin 875 mg-potassium clavulanate 125 mg tablet 1 tab PO Q12H 6 days #12 tabs 03/29/24
bisacodyl 10 mg rectal suppository (Dulcolax (bisacodyl)) 10 mg [place] HSPRN PRN Constipation #50 ea 03/29/24
polyethylene glycol 3350 17 gram oral powder packet (Miralax) 17 g PO DAILY Constipation #0 ea 03/29/24
Home Medication Changes
Amoxicillin-Pot Clavulanate is a new medication.
Note the changes in Bisacodyl.
Extra Tylenol stopped.
Pending Results: Yes
Additional Pending Results:
MRSA screen results
Total time spent discharging patient (in min): 40
--- NOTE | 2024-03-29 14:44 | CM ---
gas well drilling manager reviewed patient's chart chart and patient was admitted from [facility], patient required assistance x 2 at [facility], w/c at times, [facility] has been at [facility] for many years, case planner attempted to contact
emergency contact for patient but there was no answer.
Plan; Patient to return to [facility] today.
Report [phone]
[2024-03-29 16:00] VITALS: BP 121/68
--- NOTE | 2024-04-01 08:12 | W.DCSUMMARY ---
Discharge Summary
Discharge Data
Date of Admission: 03/28/24
Date of Discharge: 03/29/24
Total time spent discharging patient (in min): 40
-
Pending Results: Yes
Additional Pending Results:
MRSA screen results
Hospital Course
68 y/o female with past medical history of ischemic stroke with residual aphasia and left hemiparesis who presented with abdominal pain. Patient was a limited historian due to significant aphasia. Apparently she was sent from the [facility]
Home for complaints of abdominal pain, and staff said they noted bright red blood per rectum. CT scan in emergency department showed stool burden with stercoral colitis (however please see the full CT imaging report for full details). Patient was
started on antibiotics. Colorectal surgery was consulted and their impression was 'Developing' stercoral colitis per CT imaging; they performed disimpaction with good results. Patient was started on a bowel regimen and was stable for discharge the
next day.
Discharge Plan
-
Patient Disposition: [facility]/SNF
Discharge Diagnosis/Procedures: 'Developing' stercoral colitis per CT; now having bowel function status post disimpaction with moderate amount hard of stool removed, no blood
Fecal Occult Blood Positive
Bright Red Blood Per Rectum, prior to arrival, as per patient's jail
Chronic Anemia
Ischemic Stroke with Residual Aphasia, Left Hemiplegia and Dysphagia
Seizure Disorder
Mood Disorder
Hypertension
Hypothyroidism
Condition: Fair
Diet: As tolerated
Activity: As tolerated
Driving Restrictions: No driving
Other Services: PT and OT
Referrals:
Mu Flores I., DO [Family Provider] - in one to two days
Additional Discharge Medication Instructions: Amoxicillin-Pot Clavulanate is a new medication.
Note the changes in Bisacodyl.
Extra Tylenol stopped.
Prescriptions:
New
bisacodyl [Dulcolax (bisacodyl)] 10 mg suppository
10 mg CA HSPRN PRN (Reason: Constipation) Qty: 50 0RF
amoxicillin-pot clavulanate 875-125 mg tablet
1 tab PO Q12H 6 Days Qty: 12 0RF
Continued
thiamine HCl (vitamin B1) 100 MG tablet
100 mg PO NOON
acetaminophen 325 MG tablet
650 mg PO Q6HPRN MDD 3000 mg PRN (Reason: elevated temperature>100)
lithium carbonate 150 MG capsule
150 mg PO NOON
levothyroxine 75 MCG tablet
75 mcg PO DAILY
mirtazapine 15 MG tablet
15 mg PO HS
risperidone 1 MG tablet
1 mg PO QPM
olanzapine 5 mg Tablet
5 mg PO QPM
loperamide [Imodium A-D] 2 mg Tablet
2 mg PO Q6HPRN PRN (Reason: diarrhea)
carbamazepine 200 mg Tablet
400 mg PO BID
ferrous sulfate 325 mg (65 mg iron) Tablet
325 mg PO AC
docusate sodium [Colace] 100 mg Capsule
100 mg PO BID
propranolol 20 mg Tablet
20 mg PO DAILY
metronidazole 1 % Cream
1 applic TOPICAL [id number] PRN (Reason: rash)
magnesium oxide 400 mg magnesium Tablet
400 mg PO NOON
sennosides-docusate sodium [Senna-S] 8.6-50 mg Tablet
1 tab-cap PO NOON
sennosides-docusate sodium [Senna-S] 8.6-50 mg Tablet
2 tab-cap PO QPM
magnesium hydroxide [Milk of Magnesia] 400 mg/5 mL Suspension
30 ml PO [id number] PRN (Reason: constipation)
cyanocobalamin (vitamin B-12) 500 mcg Tablet
500 mcg PO DAILY
Debrox 6.5 % Drops
5 drp LEFT EAR BID
Patient Comments:
03/28/2024, start date: 03/16/2024; end date: 04/06/2024.
calcium carbonate 500 mg calcium (1,250 mg) Tablet,Chewable
1,000 mg PO Q8HPRN PRN (Reason: indigestion)
lithium carbonate 300 mg Tablet
300 mg PO QPM
cholecalciferol (vitamin D3) 50 mcg (2,000 unit) Tablet
50 mcg PO NOON
Eucerin cream
1 applic topical Q6HPRN PRN (Reason: dry skin)
polyethylene glycol 3350 [Miralax] 17 gram Powder In Packet
17 g PO DAILY Qty: 0 0RF
Patient Comments:
03/28/2024, hold for loose stool.
Discontinued
bisacodyl [OneLAX Bisacodyl] 10 MG suppository
10 mg [place] DAILYPRN PRN (Reason: if MOM ineffective)
bisacodyl 5 MG tablet,delayed release (DR/EC)
5 mg PO QPM
acetaminophen 325 MG tablet
650 mg PO Q4HPRN MDD 3000 mg PRN (Reason: mild pain) Qty: 0 0RF
Discharge Orders:
Discharge Patient (As Directed); Ordered 03/29/24
Ordered By: Michael August
Discharge Date and Time
Discharge Date/Time: 03/29/24 18:30
Print Language: [id number]
== END 2024-03-29 18:30 | DRG 392 ==
LOC: 4 WEST ACU 15:48
PROVIDERS: Physician Assistant Medical; ADMITTING PHYSICIAN Hospitalist; CONSULT PHYSICIAN Surgery; EMERGENCY PHYSICIAN Student in an Organized Health Care Education/Training Program; FAMILY PHYSICIAN Internal Medicine
DX: K52.89 Other specified noninfective gastroenteritis and colitis (principal); I69.354 Hemiplegia and hemiparesis following cerebral infarction affecting left non-dominant side; Z66 Do not resuscitate; D64.9 Anemia, unspecified; I69.320 Aphasia following cerebral infarction; I10 Essential (primary) hypertension; E03.9 Hypothyroidism, unspecified; F31.9 Bipolar disorder, unspecified; G40.909 Epilepsy, unspecified, not intractable, without status epilepticus
CPT/HCPCS: 74177; 80048; 80053; 81003; 82607; 82728; 82746; 83540; 83550; 83605; 83690; 83735; 84443; 85025; 85027; 86850; 86900; 86901; 87070; 93005; 99285; Q9967

== ENCOUNTER → 2024-05-31 09:48 | Outpatient (REF) | payer MEDICARE, OTHER, SELFPAY ==
[2024-05-31 11:57] VITALS: BP 110/58
== END ==
LOC: RADI 09:48
PROVIDERS: ATTENDING PHYSICIAN Internal Medicine
DX: E06.3 Autoimmune thyroiditis (principal)
CPT/HCPCS: 88173; 10005

== ENCOUNTER 2025-08-21 22:05 | Inpatient (IN) | payer MEDICARE, OTHER, SELFPAY ==
[2025-08-21 19:14] VITALS: BP 100/42
[2025-08-21 20:06] LABS: Hematocrit 39.0 % (37.0-47.0); Hemoglobin 11.9 g/dL (12.0-16.0); Mean Corp Hgb Conc. 30.5 g/dL (33.0-37.0); Mean Corpuscular Volume 95.4 fL (81.0-99.0); Nucleated Red Blood Cells % 0 %; Platelet Count 643 10^3/uL (130-400); Red Cell Dist. Width 14.5 % (11.5-14.5)
[2025-08-21 20:14] LABS: ALT (SGPT) 27 U/L (0-35); AST (SGOT) 21 U/L (14-36); Albumin 3.8 g/dl (3.5-5.0); Alkaline Phosphatase 103 U/L (38-126); Blood Urea Nitrogen 48 mg/dl (7-17); Calcium 9.6 mg/dl (8.4-10.2); Carbon Dioxide 26 mmol/L (22-30); Chloride 116 mmol/L (98-107); Glucose 122 mg/dl (70-99); Potassium 4.8 mmol/L (3.5-5.1); Sodium 150 mmol/L (135-145); Total Protein 7.1 g/dl (6.3-8.2); eGFR 44.79
[2025-08-21 20:17] VITALS: BP 114/46
[2025-08-21] MEDS: NSS 1000 IV (20:24)
[2025-08-21 20:31] LABS: Urine Character Clear (Clear)
--- NOTE | 2025-08-21 20:31 | ED.GENMED ---
History of Present Illness
General
Chief Complaint: Change in Mental Status
Source: patient and records
Exam Limitations: non verbal-adult and altered mental status
Time Seen by Provider: 08/21/25 19:13
Nursing documentation reviewed up to this point in time: agreed with
History of Present Illness
History of Present Illness:
69-year-old female from local facility presents with decreased responsiveness, she has a history of mental illness seizures, prior stroke, here she is minimally verbal seems to follow simple commands,
Past History
Past History
ED Past Medical History: CVA, HTN, Psychiatric (Schizophrenia, bipolar) and Other (Developmental delay)
ED Past Surgical History: Orthopedic (Right femur, neck surgery) and Other (Nasal surgery)
Social History
Tobacco: Non-smoker
Alcohol: None
Drug: None
Personal: Single
Living: long term
Employment: Not employed
Review of Systems
Review of Systems
All Other Systems: Not applicable
Phy Exam
Physical Exam
Physical Exam:
Physical Exam
General: Chronically ill-appearing
Neck: Dry
Heart: s1/s2 regular rate and rhythm, no murmur. equal radial pulses.
Lungs: No
Abdomen: Flat stomach
Neuro: Follows simple commands, left-sided plegia
Skin: no rash
Psychiatric: Unable to assess
Extremities: no edema.
Course
Orders/Labs/Results
Orders:
Orders
08/21/25 19:12
Electrocardiogram (*1) Urgent
Reason for Study: Fatigue / Weakness
08/21/25 19:[address] [CT Head W/o Iv Contrast] Urgent
Comment:
Reason For Exam: change in mental status
EKG- Treatment ONCE
08/21/25 19:21
Complete Blood Count/With Diff Urgent
08/21/25 19:45
Comprehensive Metabolic Panel Urgent
[place] Urgent
Comment: ADD ON
08/21/25 20:16
Add On- LAB Urgent
Tests Added?: lithium, tegretol
0.9% Sodium Chloride 1000 ml [Nss] 1,000 ml IV BOLUS
08/21/25 20:21
Urinalysis Reflex To Culture Urgent
Date Specimen was Collected: 08/21/25
Time Specimen was Collected: 20:19
08/21/25 20:27
Tegretol (Carbamazepine) Urgent
08/21/25 20:33
CR Chest - 2 Views Urgent
Comment:
Reason For Exam: Dehydration
Abnormal Lab Results
08/21/25 08/21/25
19:21 19:45
WBC 19.0 H 10^3/uL
(4.8-10.8)
RBC 4.09 L 10^6/uL
(4.20-5.40)
Hgb 11.9 L g/dL
(12.0-16.0)
MCHC 30.5 L g/dL
(33.0-37.0)
Plt Count 643 H 10^3/uL
(130-400)
Abs Immat Gran (auto) 0.1 H 10^3/uL
(0-0.05)
Absolute Neuts (auto) 16.4 H 10^3/uL
(1.4-6.5)
Absolute Lymphs (auto) 1.1 L 10^3/uL
(1.2-3.4)
Absolute Monos (auto) 1.2 H 10^3/uL
(0.1-0.6)
Immature Gran % 0.6 H %
(0-0.5)
Neutrophils % 86.3 H %
(42.2-75.2)
Lymphocytes % 5.5 L %
(20.5-51.1)
Sodium 150 H mmol/L
(135-145)
Chloride 116 H mmol/L
(98-107)
BUN 48 H mg/dl
(7-17)
Creatinine 1.3 H mg/dL
(0.6-1.0)
Glucose 122 H mg/dl
(70-99)
08/21/25 19:21
08/21/25 19:45
Vital Signs
Initial and Last Documented VS:
Initial Vital Signs
Temp Pulse Resp BP Pulse Ox
97.4 F 88 18 100/42 97
08/21/25 19:14 08/21/25 19:14 08/21/25 19:14 08/21/25 19:14 08/21/25 19:14
Last Documented Vital Signs
Temp Pulse Resp BP Pulse Ox
99.4 F 91 18 100/42 97
08/21/25 20:18 08/21/25 19:30 08/21/25 19:30 08/21/25 19:14 08/21/25 20:33
MDM/Problems Addressed
Differential Diagnosis Includes:
Dehydration stroke UTI [place] abnormality infection
MDM/Problems Addressed:
Infection dehydration confusion
Chronic conditions affecting care: Neurological disorder
Acute Exacerbation and/or Progression of Chronic Illness: Neurological disorder
*Radiology
Radiology exam reviewed: radiology read reviewed
*Pulse Oximetry
SaO2: 97
Oxygen Mode of Delivery: Room air
Patient hypoxic: no
*EKG
Interpreted by ED Provider?: Yes
Interpretation: normal
Comparison EKG: no comparison EKG present
Heart Rate: 78
Rate: normal
Rhythm: sinus
Ischemia: non-specific ST changes
*Diesel Locomotive Crane Operator Interpretation
Rate: normal
Interpretation: normal
Heart Rate: 78
Rhythm: sinus
*Critical Care Note
Total Time (30-74mins, 75-104mins- exclusive of procedures): Not Applicable
Update Note
Update Note:
Update labs are noted afebrile urine pending will check chest x-ray CT completed and pending also check drug levels
ED Attending Note
-
Portions of this chart may have been created with voice recognition software.� Occasional wrong word or��sound alike� substitutions may have occurred due to the inherent limitations of voice recognition software.
Discharge Plan
Departure
Patient Disposition: Admit
Date of Disposition: 08/21/25
Time of Disposition: 20:34
Admit to: Med/Surg
Presentation/result/management discussed w/ accepting MD/DO: Hospitalist
Patient with high blood pressure during this ER visit?: No
Condition: Fair
Discharge Problem:
Dehydration with hypernatremia
Prescriptions:
No Action
thiamine HCl (vitamin B1) 100 MG tablet
100 mg PO NOON
acetaminophen 325 MG tablet
650 mg PO Q6HPRN MDD 3000 mg PRN (Reason: elevated temperature>100)
lithium carbonate 150 MG capsule
150 mg PO NOON
levothyroxine 75 MCG tablet
75 mcg PO DAILY
mirtazapine 15 MG tablet
15 mg PO HS
risperidone 1 MG tablet
1 mg PO QPM
olanzapine 5 mg Tablet
5 mg PO QPM
loperamide [Imodium A-D] 2 mg Tablet
2 mg PO Q6HPRN PRN (Reason: diarrhea)
carbamazepine 200 mg Tablet
400 mg PO BID
ferrous sulfate 325 mg (65 mg iron) Tablet
325 mg PO AC
docusate sodium [Colace] 100 mg Capsule
100 mg PO BID
propranolol 20 mg Tablet
20 mg PO DAILY
metronidazole 1 % Cream
1 applic TOPICAL [id number] PRN (Reason: rash)
magnesium oxide 400 mg magnesium Tablet
400 mg PO NOON
sennosides-docusate sodium [Senna-S] 8.6-50 mg Tablet
1 tab-cap PO NOON
sennosides-docusate sodium [Senna-S] 8.6-50 mg Tablet
2 tab-cap PO QPM
magnesium hydroxide [Milk of Magnesia] 400 mg/5 mL Suspension
30 ml PO [id number] PRN (Reason: constipation)
cyanocobalamin (vitamin B-12) 500 mcg Tablet
500 mcg PO DAILY
Debrox 6.5 % Drops
5 drp LEFT EAR BID
Patient Comments:
03/28/2024, start date: 03/16/2024; end date: 04/06/2024.
calcium carbonate 500 mg calcium (1,250 mg) Tablet,Chewable
1,000 mg PO Q8HPRN PRN (Reason: indigestion)
lithium carbonate 300 mg Tablet
300 mg PO QPM
cholecalciferol (vitamin D3) 50 mcg (2,000 unit) Tablet
50 mcg PO NOON
Eucerin cream
1 applic topical Q6HPRN PRN (Reason: dry skin)
bisacodyl [Dulcolax (bisacodyl)] 10 mg suppository
10 mg MA HSPRN PRN (Reason: Constipation) Qty: 50 0RF
polyethylene glycol 3350 [Miralax] 17 gram Powder In Packet
17 g PO DAILY Qty: 0 0RF
Patient Comments:
03/28/2024, hold for loose stool.
Referrals:
Janel Lazar MD [Family Provider]
Interventions
Interventions:
*Risk Screen - Suicide Last Done: 08/21/25 19:14
*General Assessment Last Done: 08/21/25 19:14
*Neglect/Abuse Screening Last Done: 08/21/25 19:14
*ED COVID-19 Vaccine History Last Done: 08/21/25 19:38
*ED Influenza Vaccine History Last Done: 08/21/25 19:14
ED- Cardiac Assessment Last Done: 08/21/25 19:35
ED- Neurological Assessment Last Done: 08/21/25 19:35
Discharge Date and Time
Print Language: FRISIAN
[2025-08-21 20:43] LABS: Urine Red Blood Cell 0-2 /HPF (0-2); Urine White Cell 50-60 /HPF (0-5)
[2025-08-21 20:43] LABS: Lithium 2.1 mmol/L (0.6-1.2)
[2025-08-21 21:00] VITALS: BP 105/65
--- NOTE | 2025-08-21 21:03 | HPS.HSE ---
Family Physician
-
Family Physician: Janel Lazar
Chief Complaint
-
responsiveness
History of Present Illness
HPI
69F Res of local fascility HX Developmental delay, ischemic CVA with dysphagia, residual Aphasia, Left Hemiplegia , HTN, Schizophrenia, bipola, Seizure Disorde , hypothyroidism, Stercoral colitis, LGIB, chronic Anemia seen at ER
- decreased responsiveness,
- minimally verbal seems to follow simple commands
At ER:
Na 150
Medical History
Past Medical History
Past Medical History: Reports Other
Additional Past Medical History:
Ischemic Stroke with Residual Aphasia and Left Hemiplegia
Dysphagia
Seizure Disorder
Mood Disorder
Hypothyroidism
Past Surgical History: Reports Other
Additional Past Surgical History:
Right Hip ORIF
Neck Surgery
Social History
Unable to obtain full social history at this time due to: Patient Non-verbal
Living: Penitentiary
Family History
Family History: Unable to Obtain
Allergies / Home Medications
Allergies reflects when Allergies were last updated in [employer].
Home Medications with original date entered in [employer]
Allergy/Medication List:
Allergies
Allergy/AdvReac Type Severity Reaction Status Date / Time
aspirin Allergy Unknown Verified 08/12/23 13:22
ciprofloxacin [From Cipro] Allergy Unknown Verified 08/12/23 13:22
ciprofloxacin HCl Allergy Unknown Verified 08/12/23 13:22
[From Cipro]
divalproex sodium Allergy Unknown Verified 08/12/23 13:22
[From Depakote]
valproic acid Allergy Unknown Verified 08/12/23 13:22
adrenergic blocking agents Allergy Unknown Uncoded 03/21/21 15:12
Home Medications
thiamine HCl (vitamin B1) 100 mg tablet 100 mg PO NOON Supplement 04/11/14
acetaminophen 325 mg tablet 650 mg PO Q6HPRN PRN elevated temperature>100 05/08/16
bisacodyl 10 mg rectal suppository (OneLAX Bisacodyl) 10 mg DC DAILYPRN PRN if MOM ineffective 05/08/16
bisacodyl 5 mg tablet,delayed release 5 mg PO QPM Constipation 05/08/16
acetaminophen 325 mg tablet 650 mg (2 x 325 mg) PO Q4HPRN PRN mild pain ##0 05/12/16
levothyroxine 75 mcg tablet 75 mcg PO DAILY Thyroid 03/21/21
lithium carbonate 150 mg capsule 150 mg PO NOON Mental Health/Anxiety 03/21/21
mirtazapine 15 mg tablet 15 mg PO HS Mental Health/Anxiety 03/21/21
risperidone 1 mg tablet 1 mg PO QPM Mental Health/Anxiety 03/21/21
carbamazepine 200 mg tablet 400 mg PO BID Seizures 08/12/23
docusate sodium 100 mg capsule (Colace) 100 mg PO BID Constipation 08/12/23
ferrous sulfate 325 mg (65 mg iron) tablet 325 mg PO AC Supplement 08/12/23
loperamide 2 mg tablet (Imodium A-D) 2 mg PO Q6HPRN PRN diarrhea 08/12/23
magnesium oxide 400 mg PO NOON Supplement 08/12/23
metronidazole 1 % topical cream 1 applic topical [id number] PRN rash 08/12/23
olanzapine 5 mg tablet 5 mg PO QPM Mental Health/Anxiety 08/12/23
propranolol 20 mg tablet 20 mg PO DAILY Blood Pressure 08/12/23
Eucerin 1 applic topical Q6HPRN PRN dry skin 03/28/24
calcium carbonate 1,000 mg PO Q8HPRN PRN indigestion 03/28/24
carbamide peroxide 6.5 % ear drops (Debrox) 5 drp LEFT EAR BID 03/28/24
cholecalciferol (vitamin D3) 50 mcg (2,000 unit) tablet 50 mcg PO NOON 03/28/24
cyanocobalamin (vitamin B-12) 500 mcg tablet 500 mcg PO DAILY 03/28/24
lithium carbonate 300 mg tablet 300 mg PO QPM 03/28/24
magnesium hydroxide 400 mg/5 mL oral suspension (Milk of Magnesia) 30 ml PO [id number] PRN constipation 03/28/24
polyethylene glycol 3350 17 gram oral powder packet (Miralax) 17 g PO DAILY 03/28/24
sennosides 8.6 mg-docusate sodium 50 mg tablet (Senna-S) 1 tab-cap PO NOON 03/28/24
sennosides 8.6 mg-docusate sodium 50 mg tablet (Senna-S) 2 tab-cap PO QPM 03/28/24
Review of Systems
-
Unable to obtain full review of systems at this time due to: Other (AMS )
Physical Exam
Vital Signs
Vital Signs
Temp Pulse Resp BP Pulse Ox
99.4 F 91 18 100/42 97
08/21/25 20:18 08/21/25 19:30 08/21/25 19:30 08/21/25 19:14 08/21/25 20:33
Physical Exam
General: No Apparent Distress
HEENT: Anicteric
Respiratory: Non Labored Respirations
Cardiac: S1/S2 and Regular Rhythm
GI: Soft and Other (Hyperactive bowel sounds)
Rectal: Deferred by Provider
Skin: Warm and Dry
Neuro: Other (Unable to assess orientation due to aphasia and lethgargy )
Laboratory Results
-
08/21/25 19:21
08/21/25 19:45
Laboratory Results
Total Bilirubin 0.5 mg/dl (0.2-1.3) 08/21/25 19:45
AST 21 U/L (14-36) 08/21/25 19:45
ALT 27 U/L (0-35) 08/21/25 19:45
Alkaline Phosphatase 103 U/L (38-126) 08/21/25 19:45
Data Reviewed
-
Lab Data: Labs Reviewed by me
Old Records: Reviewed
Impression/Plan
-
08/21/25
19:14 08/21/25
19:14
Temp 97.4 F
Pulse 88
Resp Rate 18
Blood pressure 100/42 100/42
SaO2 97
Oxygen Mode of Delivery Room air
08/21/25 08/21/25
19:21 19:45
Hgb 11.9 L
Plt Count 643 H
Sodium 150 H
Potassium 4.8
Chloride 116 H
03/29/24 08/21/25
09:55 19:45
Carbon Dioxide 24 26
Creatinine 0.8 1.3 H
eGFR > 60.00 44.79
08/21/25
19:45
[place] 2.1 H*
08/21/25
20:21
Leukocyte Esterase Rfl 3+ A
Urine WBC (Reflex) 50-60 A
Urine Bacteria (Reflex) Many A
HCT:
Stable chronic findings. No acute intracranial abnormality.
Last hospitalist admission: Date of Admission: 03/28/24 - Date of Discharge: 03/29/24
PDX:
Stercoral colitis
LGIB
Chronic Anemia
Ischemic Stroke with Residual Aphasia, Left Hemiplegia and Dysphagia
Seizure Disorder
Mood Disorder
Hypertension
Hypothyroidism
ASSESSMENT & PLAN
Multifactorial origins mediated hypoactive TME with decreased wakefulness and minimally verbal seems to follow simple commands
Likely precipitants for TME : [place] toxicity , concerning for UTI, hypernatremia with FWD 1.7 due to dehydration, CARA, Overmedications
- NEG HCT
- POA UA for UTI - Tx with IV CFTZ and f/u UCx
- NEG HCT
- Hypernatremia with 1. 7 L FWD due to dehydration - correct with D5W @ 80/H - rate of correction not more that 6 meq over 12 hrs
- [place] toxicity - Hold [place] - check [place] level in am
- Hold Tegretol for now Pending Tegretol level
- At risk for aspiration - hold all POP ananth for now
- Speech to eval
- FU Na and Cr in AM
- Use Hypoglycemic protocol from [facility]
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
Chronic Anemia
HX Ischemic Stroke with Residual Aphasia, Left Hemiplegia and Dysphagia
Seizure Disorder - pending carbamazepine evel and holding carbamazepine
Mood Disorder - hold PO mirtazapine, olanzapine, risperidone and lithium for now
Hypertension - hold propranolol
Hypothyroidism - hold levothyroxine
DVT Px: SCDs
Code Status: DNR per [facility] paperwork
IP TLM
[2025-08-21 21:50] VITALS: BP 116/68
[2025-08-21 22:00] VITALS: BP 107/53
[2025-08-21] MEDS: D5W 1000 IV ×2 (22:03→22:47)
--- NOTE | 2025-08-21 22:25 | PTCARENOTE ---
Patient arrived to unit via stretcher and pulled over. Patient is nonverbal and does not show any signs of discomfort. Call leo within reach.
[2025-08-21 23:00] VITALS: BP 123/71
[2025-08-21] MEDS: ROCEPHIN 1000 MG IV (23:07)
[2025-08-21] MEDS: STERILE WATER FOR INJECTION 10 ML IV (23:07)
[2025-08-21 23:56] LABS: Blood Urea Nitrogen 44 mg/dl (7-17); Calcium 9.5 mg/dl (8.4-10.2); Carbon Dioxide 26 mmol/L (22-30); Chloride 117 mmol/L (98-107); Glucose 131 mg/dl (70-99); Potassium 4.4 mmol/L (3.5-5.1); Sodium 151 mmol/L (135-145); eGFR 44.79
[2025-08-22 00:22] LABS: Glucose - Point of Care 168 mg/dl (70-99)
[2025-08-22 03:00] VITALS: BP 131/77
[2025-08-22 05:56] LABS: Glucose - Point of Care 119 mg/dl (70-99)
[2025-08-22 07:05] VITALS: BP 123/66
[2025-08-22 07:17] LABS: Hematocrit 39.3 % (37.0-47.0); Hemoglobin 11.5 g/dL (12.0-16.0); Mean Corp Hgb Conc. 29.3 g/dL (33.0-37.0); Mean Corpuscular Volume 96.6 fL (81.0-99.0); Nucleated Red Blood Cells % 0 %; Platelet Count 574 10^3/uL (130-400); Red Cell Dist. Width 14.6 % (11.5-14.5)
[2025-08-22 07:41] LABS: Lithium 1.6 mmol/L (0.6-1.2)
--- NOTE | 2025-08-22 09:20 | PTOTSP ---
Speech Language Pathology
Pt seen for clinical bedside swallow evaluation. Previous VSEs completed 01/14/18 and 04/25/10. Most recent VSE with recommendations for puree solids/thin liquids with findings of mod-severe oral dysphagia and mod pharyngeal dysphagia. Trace
penetration was seen, but no aspiration noted.
This date, P.O. trials of puree and thin liquids provided. Pt extremely impulsive. When first handed cup of water, pt attempted drinking extremely quickly with majority spilling on self. Provided further liquids via straw. Pt impulsive and
required WHEEL AND CASTER REPAIRER to pinch straw for single sips. Cough noted with consecutive sips. Pt with mild diffuse oral residue post puree inconsistently. This cleared with a liquid wash. However, cough noted with liquid wash x1.
WBC elevated, but CXR with no acute findings. Pt is at risk for aspiration given impulsivity and mentation.
Recommend:
(1) IDDSI Level 4 (Puree) and Thin liquids
(2) Aspiration precautions: sit upright, full assist, single sips of liquids via straw (pinch straw)
(3) Meds crushed in puree
(4) WHEEL AND CASTER REPAIRER to continue to follow
--- NOTE | 2025-08-22 10:47 | W.PN.HOSP.TC ---
Today's Communication/Plan
-
see A/P
Assessment / Plan
Assessment / Plan
HPI: 69 yo F [facility] with PMH Developmental delay, ischemic CVA with dysphagia, residual aphasia, Left Hemiplegia, HTN, Schizophrenia, bipolar, Seizure Disorder, hypothyroidism, Stercoral colitis, LGIB, chronic Anemia; p/w decreased
responsiveness.
She was minimally verbal but seems to follow simple commands
A/P:
# Acute metabolic encephalopathy/Hypoactive delirium, multifactorial: [place] toxicity, concern for UTI, dehydration/hypernatremia, CARA/uremia, possible overmedications
CT head negative
Follow urine culture, cover with empiric ceftriaxone for now
# Dehydration with Hypernatremia
# CARA
Monitor sodium level, today remained at 151
Monitor SCr, today at 1.3 (from baseline 0.8)
Cont D5W
# [place] toxicity
Hold [place] level noted
Psych CS for [place] recc
# Likely chronic dysphagia
Cleared for pureed diet per SPL
Other chronic medical conditions:
# Chronic Anemia
# HX Ischemic Stroke with Residual Aphasia, Left Hemiplegia and Dysphagia
# Seizure Disorder - resume carbamazepine with level WNL
# Mood Disorder - hold PO mirtazapine, olanzapine, Buspirone and lithium for now
# Hypertension - resume propranolol with holding parameter
# Hypothyroidism - resume levothyroxine. Check TSH reflex FT4
DVT Px: SCDs
Code Status: DNR per [place] paperwork
Anticipated Discharge: 24 - 48 hours
Subjective/Interval History
-
Date of Service: August 22, 2025
Objective Data
-
Labs:
Laboratory Results
08/21/25 08/22/25
23:28 07:00
WBC 16.3 H
Hgb 11.5 L
Hct 39.3
Plt Count 574 H
Sodium 151 H
Potassium 4.4
Chloride 117 H
Carbon Dioxide 26
BUN 44 H
Creatinine 1.3 H
Glucose 131 H
Calcium 9.5
Vital Signs:
Vital Signs
Temp Pulse Resp BP Pulse Ox
37.2 C 83 24 123/66 96
08/22/25 07:05 08/22/25 07:05 08/22/25 07:05 08/22/25 07:05 08/22/25 07:05
Review of Systems
-
Unable to obtain full review of systems at this time due to: Other (appears to be non-verbal at baseline )
Physical Exam
-
General: No Apparent Distress, Comfortable, Appears Chronically Ill and Cachectic; Negative Respiratory Distress
HEENT: Normocephalic, Atraumatic, Nose Appears Normal and Ears Appear Normal; Negative Oxygen
Respiratory: Clear to Auscultation and Non Labored Respirations; Negative Accessory Resp Muscle Use
Cardiac: Regular Rhythm and S1/S2
GI: Soft, Nontender and Nondistended
Musculoskeletal: Other (Chronic BL upper extremities contractures from previous stroke )
Skin: Warm and Dry
Neuro: Awake
Psych: Calm
Data Reviewed
-
CT Scan: Report Reviewed by me
Labs: Labs Reviewed by me
[2025-08-22 11:00] VITALS: BP 139/80
[2025-08-22] MEDS: SYNTHROID 75 MCG PO (11:44)
--- NOTE | 2025-08-22 11:48 | CM ---
CM reviewed chart, patient hx aphasia, PLOF obtained from [facility], Admissions at [facility].
Patient is a 7 Female, resides at local SNF, HX Developmental delay, ischemic CVA with dysphagia, residual Aphasia, Left Hemiplegia , HTN, Schizophrenia, bipola, Seizure Disorde , hypothyroidism, Stercoral colitis, LGIB, chronic Anemia seen at ER
for decreased responsiveness, minimally verbal seems to follow simple commands.
Patient LTC resident [facility]. Per Admissions- patient is WC bound, hx aphasia stroke, incontinent of bowel/bladder, requires assistance with dressing/doing hair. PCP Janel Lazar. Referral placed to [facility] for patient return when stable.
Plan; return to [facility] LTC when medically stable
[2025-08-22] MEDS: D5W 1000 IV (14:35)
[2025-08-22 15:00] VITALS: BP 121/69
[2025-08-22 19:00] VITALS: BP 92/55
[2025-08-22] MEDS: TEGRETOL 400 MG PO (20:21)
--- NOTE | 2025-08-22 21:25 | CS.PSYCHR ---
Consult Summary - Psychiatry
-
pt seen in consultation to review psychotropic medications
69 yo woman fdc resident of SNF due to developmental delay, s/p CVA, aphasic, wheelchair bound, left hemiparesis, hypothyroidism, epilepsy, bipolar?. Brought to ED due to altered mental status, less responsive.
Noted to have elevated lithium level.
Has been on lithium 450 mg daily, buspirone 10 mg bid, tegretol 400 bid, mirtazepine 15 mg hs, olanzapine 5 mg hs, synthroid 75 mcg daily
Review of many [facility] visits from 2013 onward indicate markedly impaired functioning with many years of total care. inside sales territory manager has reached out to famly with no response as of yet.
Mental status is quite remarkably poor. Pt emaciated, left hemiparetic with contractures darryl arm. Right arm in air grasping, pt softly moaning Makes eye contact, appears to respond to questions with change in pattern of groans. Unable to get any
more from her.
At this point would hold lithium, zyprexa, mirtazepine, investigate baseline, as well as evidence of true bipolar requiring lithium (reportedly allergic to depakote) Continue tegretol, check level
[2025-08-22] MEDS: STERILE WATER FOR INJECTION 10 ML IV (22:10)
[2025-08-22] MEDS: ROCEPHIN 1000 MG IV (22:11)
[2025-08-22 23:00] VITALS: BP 98/52
[2025-08-23] VITALS (7 sets, daily range): BP systolic 99–134; BP diastolic 57–66
[2025-08-23] MEDS: SYNTHROID 75 MCG PO (05:20)
[2025-08-23] MEDS: D5W 1000 IV (06:33)
[2025-08-23 08:16] LABS: Hematocrit 32.9 % (37.0-47.0); Hemoglobin 9.8 g/dL (12.0-16.0); Mean Corp Hgb Conc. 29.8 g/dL (33.0-37.0); Mean Corpuscular Volume 95.1 fL (81.0-99.0); Platelet Count 475 10^3/uL (130-400); Red Cell Dist. Width 14.7 % (11.5-14.5)
[2025-08-23 08:37] LABS: Blood Urea Nitrogen 37 mg/dl (7-17); Calcium 9.2 mg/dl (8.4-10.2); Carbon Dioxide 26 mmol/L (22-30); Chloride 113 mmol/L (98-107); Glucose 144 mg/dl (70-99); Lithium 0.9 mmol/L (0.6-1.2); Magnesium 2.7 mg/dl (1.6-2.3); Potassium 5.0 mmol/L (3.5-5.1); Sodium 143 mmol/L (135-145); eGFR 54.73
[2025-08-23] MEDS: TEGRETOL 400 MG PO ×2 (09:00→20:23)
--- NOTE | 2025-08-23 09:45 | W.PN.HOSP.TC ---
Today's Communication/Plan
-
see A/P
Assessment / Plan
Assessment / Plan
HPI: 69 yo F from local alf with PMH Developmental delay, ischemic CVA with dysphagia, residual aphasia, Left Hemiplegia, HTN, Schizophrenia, bipolar, Seizure Disorder, hypothyroidism, Stercoral colitis, LGIB, chronic Anemia; p/w decreased
responsiveness.
She was minimally verbal but seems to follow simple commands
A/P:
# Acute metabolic encephalopathy/Hypoactive delirium, multifactorial: [place] toxicity, concern for UTI, dehydration/hypernatremia, CARA/uremia, possible overmedications
CT head negative
Follow urine culture, cover with empiric ceftriaxone for now
# Dehydration with Hypernatremia , resolved
# CARA , improved
sodium level 151 -> 143 today
SCr 1.3 -> 1.1 (baseline 0.8)
Observe off D5W
Can now give NSS, use small bolus 250 cc for current low blood pressure
# [place] toxicity
Hold [place] level noted, now normalized
Psych on board
# Likely chronic dysphagia
pureed diet per SPL
Other chronic medical conditions:
# Chronic Anemia
# HX Ischemic Stroke with Residual Aphasia, Left Hemiplegia and Dysphagia
# Seizure Disorder - resume carbamazepine with level WNL
# Mood Disorder - hold PO mirtazapine, olanzapine, Buspirone and lithium for now
# Hypertension - resumed propranolol with holding parameter
# Hypothyroidism - resumed levothyroxine. Noted TSH 0.11, reflex FT4 at 1.35
DVT Px: SCDs
Code Status: DNR per [facility] paperwork
DW RN
Anticipated Discharge: Within 24 hours
Subjective/Interval History
-
Date of Service: August 23, 2025
Objective Data
-
Labs:
Laboratory Results
08/23/25
07:14
WBC 17.2 H
Hgb 9.8 L
Hct 32.9 L
Plt Count 475 H
Sodium 143 D
Potassium 5.0
Chloride 113 H
Carbon Dioxide 26
BUN 37 H
Creatinine 1.1 H
Glucose 144 H
Calcium 9.2
Vital Signs:
Vital Signs
Temp Pulse Resp BP Pulse Ox
36.8 C 81 20 99/65 98
08/23/25 07:00 08/23/25 07:00 08/23/25 07:00 08/23/25 07:00 08/23/25 07:00
I&O
08/22/25 08/23/25 08/24/25
06:59 06:59 06:59
Intake Total 1100 / 1100
Balance 1100 / 1100
Review of Systems
-
Unable to obtain full review of systems at this time due to: Other (appears to be non-verbal at baseline )
Physical Exam
-
General: No Apparent Distress, Comfortable, Appears Chronically Ill and Cachectic; Negative Respiratory Distress
HEENT: Normocephalic, Atraumatic, Nose Appears Normal and Ears Appear Normal; Negative Oxygen
Respiratory: Clear to Auscultation and Non Labored Respirations; Negative Accessory Resp Muscle Use
Cardiac: Regular Rhythm and S1/S2
GI: Soft, Nontender and Nondistended
Musculoskeletal: Other (Chronic BL upper extremities contractures from previous stroke )
Skin: Warm and Dry
Neuro: Awake
Psych: Calm
Data Reviewed
-
CT Scan: Report Reviewed by me
Labs: Labs Reviewed by me
[2025-08-23 10:11] LABS: Glycohemoglobin (HgbA1c) 6.0 % (4.0-5.6)
[2025-08-23] MEDS: NSS 250 IV (10:30)
--- NOTE | 2025-08-23 14:07 | CM ---
CM reviewed chart, care ongoing.
Anticipated d/c within 24 hours- update to [facility].
Patient will require ambulance transport to facility.
CM will continue to follow for all discharge planning needs.
Plan; return to [facility], will require ambulance transport
[facility]
Report: [phone], ask for third floor nurses station
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
[2025-08-23] MEDS: STERILE WATER FOR INJECTION 10 ML IV (22:08)
[2025-08-23] MEDS: ROCEPHIN 1000 MG IV (22:08)
[2025-08-24] MEDS: SYNTHROID 75 MCG PO (05:40)
[2025-08-24 07:00] VITALS: BP 114/66
[2025-08-24] MEDS: TEGRETOL 400 MG PO ×2 (07:41→20:40)
[2025-08-24 08:55] LABS: Hematocrit 38.6 % (37.0-47.0); Hemoglobin 11.4 g/dL (12.0-16.0); Mean Corp Hgb Conc. 29.5 g/dL (33.0-37.0); Mean Corpuscular Volume 96.3 fL (81.0-99.0); Platelet Count 531 10^3/uL (130-400); Red Cell Dist. Width 15.0 % (11.5-14.5)
[2025-08-24 09:37] LABS: Blood Urea Nitrogen 35 mg/dl (7-17); Calcium 9.9 mg/dl (8.4-10.2); Carbon Dioxide 26 mmol/L (22-30); Chloride 119 mmol/L (98-107); Glucose 128 mg/dl (70-99); Lithium 0.5 mmol/L (0.6-1.2); Potassium 5.0 mmol/L (3.5-5.1); Sodium 154 mmol/L (135-145); eGFR > 60.00
--- NOTE | 2025-08-24 09:41 | W.PN.HOSP.TC ---
Addendum entered and electronically signed by Cassandra Burciaga MD 08/24/25 12:19:
# Possible Sepsis POA
Original Note:
Today's Communication/Plan
-
see A/P
Assessment / Plan
Assessment / Plan
HPI: 69 yo F from local [facility] with PMH Developmental delay, ischemic CVA with dysphagia, residual aphasia, Left Hemiplegia, HTN, Schizophrenia, bipolar, Seizure Disorder, hypothyroidism, Stercoral colitis, LGIB, chronic Anemia; p/w decreased
responsiveness.
She was minimally verbal but seems to follow simple commands
A/P:
# Acute metabolic encephalopathy/Hypoactive delirium, multifactorial: [place] toxicity, concern for UTI, dehydration/hypernatremia, CARA/uremia, possible overmedications
CT head negative
Urine culture grew E coli, s/p ceftriaxone x3 days
hold GEOGRAPHIC INFORMATION SYSTEMS MANAGER mirtazapine, olanzapine, Buspirone and lithium, MS appears to be back to baseline, which is awake but not orientated/conversant
# Dehydration with Hypernatremia ,
# CARA , improved
SCr 1.3 -> 1.0 today (baseline 0.8)
sodium level back to 154 today
restart D5W for hypernatremia
# [place] toxicity
Hold [place] level now low
Psych on board
# Likely chronic dysphagia
pureed diet per SPL
# Leucocytosis, possible due to UTI with a component of being reactive
Monitor CBC
Other chronic medical conditions:
# Chronic Anemia
# HX Ischemic Stroke with Residual Aphasia, Left Hemiplegia and Dysphagia
# Seizure Disorder - resume carbamazepine with level WNL
# Mood Disorder - hold GEOGRAPHIC INFORMATION SYSTEMS MANAGER mirtazapine, olanzapine, Buspirone and lithium for now, MS appears to be back to baseline, awake but not orientated
# Hypertension - resumed propranolol with holding parameter
# Hypothyroidism - resumed levothyroxine. Noted TSH 0.11, reflex FT4 at 1.35
DVT Px: SCDs
Code Status: DNR per [place] paperwork
Anticipated Discharge: 24 - 48 hours
Subjective/Interval History
-
Date of Service: August 24, 2025
Objective Data
-
Labs:
Laboratory Results
08/24/25
08:04
WBC 15.1 H
Hgb 11.4 L
Hct 38.6
Plt Count 531 H
Sodium 154 H D
Potassium 5.0
Chloride 119 H
Carbon Dioxide 26
BUN 35 H
Creatinine 1.0
Glucose 128 H
Calcium 9.9
Vital Signs:
Vital Signs
Temp Pulse Resp BP Pulse Ox
37.0 C 78 20 114/66 98
08/24/25 07:00 08/24/25 07:00 08/24/25 07:00 08/24/25 07:00 08/24/25 07:00
I&O
08/23/25 08/24/25 08/25/25
06:59 06:59 06:59
Intake Total 1100 / 1100 3050 / 3050
Balance 1100 / 1100 3050 / 3050
Review of Systems
-
Unable to obtain full review of systems at this time due to: Other (appears to be non-verbal at baseline )
Physical Exam
-
General: No Apparent Distress, Comfortable, Appears Chronically Ill and Cachectic; Negative Respiratory Distress
HEENT: Normocephalic, Atraumatic, Nose Appears Normal and Ears Appear Normal; Negative Oxygen
Respiratory: Clear to Auscultation and Non Labored Respirations; Negative Accessory Resp Muscle Use
Cardiac: Regular Rhythm and S1/S2
GI: Soft, Nontender and Nondistended
Musculoskeletal: Other (Chronic LUE contracture, bed bound)
Skin: Warm and Dry
Neuro: Awake
Psych: Calm; Negative Intact Judgement/Insight
Data Reviewed
-
CT Scan: Report Reviewed by me
Labs: Labs Reviewed by me
[2025-08-24] MEDS: D5W 1000 IV (10:13)
--- NOTE | 2025-08-24 10:26 | CM ---
CM reviewed chart, care ongoing.
Anticipated d/c 24- 48 hours- update to [facility].
Patient will require ambulance transport to facility.
CM will continue to follow for all discharge planning needs.
Plan; return to [facility], will require ambulance transport
[facility]
Report: [phone], ask for third floor nurses station
[2025-08-24 11:00] VITALS: BP 133/76
--- NOTE | 2025-08-24 11:48 | PN.CDI ---
CDI
- -
CDI:
Physician Documentation Request
Admit Date: 08/21/25 22:05
Dear Doctor Gualberto,
Clinical Indicators:
Patient admitted with acute metabolic encephalopathy, multifactorial.
08/24 PN, 'Urine culture grew E coli, s/p ceftriaxone x3 days...Leucocytosis, possible due to UTI with a component of being reactive'
WBC trend:
08/21/25 08/22/25 08/23/25
19:21 07:00 07:14
WBC 19.0 H 16.3 H 17.2 H
HR trend on admission:
08/21/25
19:30 08/21/25
20:17 08/21/25
22:23
Pulse 91 93 90
08/21/25
23:00
Pulse 92
Please clarify which of the following most accurately describes the status of the patient's infection:
Severe Sepsis with associated acute metabolic encephalopathy, POA
- Sepsis with associated acute organ dysfunction, such as renal or respiratory failure
- Documentation should indicate the association between the sepsis and the organ dysfunction
Sepsis, POA
- Systemic manifestations of infection, with 2 or more SIRS criteria which include:
- Fever >100.9 degrees F or hypothermia < 96.8 degrees F
- Leukocytosis - WBC > 12,000 or leukopenia - WBC < 4,000 or > 10% bands
- Tachycardia > 90 beats per minute
- Tachypnea - RR > 20 breaths per minute or PaCO2 , 32mmHg
Source: Merck Manual 2013
UTI Only, Without Systemic Illness
Other, please specify
Use of terms such as suspected, likely, concern for, or probable (associated with a specific diagnosis that is being evaluated, monitored, or treated as if it exists) are acceptable and can be coded in the inpatient setting, when documented at the
time of discharge.
Thank you,
ROSITA Olmstead RN
CDI Specialist
available via tiger text
Please use your independent medical judgment in providing your response.
[2025-08-24 15:00] VITALS: BP 147/80
[2025-08-24 20:43] VITALS: BP 95/53
--- NOTE | 2025-08-24 22:04 | W.PN.UPDATE ---
Update Note
Progress Note Update
pt seen. continues to make progress, able to verbalize a bit more. follows commands, smiles. I spoke with sister who expressed her concerns about the care pt was receiving in [facility] given lithium intoxication (though has happened before.)
[2025-08-24 23:00] VITALS: BP 125/97
[2025-08-25] MEDS: D5W 1000 IV (04:33)
[2025-08-25] MEDS: SYNTHROID 75 MCG PO (05:14)
[2025-08-25 07:18] VITALS: BP 133/74
[2025-08-25 07:36] LABS: Hematocrit 36.3 % (37.0-47.0); Hemoglobin 10.8 g/dL (12.0-16.0); Mean Corp Hgb Conc. 29.8 g/dL (33.0-37.0); Mean Corpuscular Volume 96.5 fL (81.0-99.0); Nucleated Red Blood Cells % 0 %; Platelet Count 506 10^3/uL (130-400); Red Cell Dist. Width 15.4 % (11.5-14.5)
[2025-08-25 08:01] LABS: Blood Urea Nitrogen 31 mg/dl (7-17); Calcium 9.5 mg/dl (8.4-10.2); Carbon Dioxide 27 mmol/L (22-30); Chloride 119 mmol/L (98-107); Glucose 137 mg/dl (70-99); Lithium 0.3 mmol/L (0.6-1.2); Potassium 4.9 mmol/L (3.5-5.1); Sodium 153 mmol/L (135-145); eGFR > 60.00
[2025-08-25] MEDS: TEGRETOL 400 MG PO ×2 (09:14→19:20)
--- NOTE | 2025-08-25 11:46 | W.PN.HOSP.TC ---
Today's Communication/Plan
-
slowly improving. Continue current plan.
Assessment / Plan
Assessment / Plan
69 yo F from local residential with PMH of
Developmental delay,
ischemic CVA with dysphagia,
residual aphasia,
Left Hemiplegia,
essential HTN,
Schizophrenia,
bipolar,
Seizure Disorder,
hypothyroidism,
Stercoral colitis,
LGIB,
chronic Anemia;
p/w decreased responsiveness. She was minimally verbal but seems to follow simple commands
A/P:
1. Acute metabolic encephalopathy/Hypoactive delirium, - improving
multifactorial: [place] toxicity, concern for UTI, dehydration/hypernatremia, CARA/uremia, possible overmedications
CT head negative
Urine culture grew E coli, s/p ceftriaxone x3 days
continue to hold CHANGE ANALYST mirtazapine, olanzapine, Buspirone and lithium,
MS appears to be back to baseline, which is awake but not orientated/conversant
2. Dehydration with Hypernatremia - improving
Complicated by CARA , which is also improved
SCr 1.3 -> 1.0 -> 1.0 today (baseline 0.8)
sodium level back to 153 today
restarted D5W for hypernatremia
3. [place] toxicity - resolving
Hold [place] level now low
Psych consult appreciated
4. Likely chronic dysphagia
Continue pureed diet per SPL
5. Leucocytosis, possible due to UTI with a component of being reactive - resolving
Today 14.7
Monitor CBC
Other chronic medical conditions:
Chronic Anemia
HX Ischemic Stroke with Residual Aphasia, Left Hemiplegia and Dysphagia
Seizure Disorder - resume carbamazepine with level WNL
Mood Disorder - hold CHANGE ANALYST mirtazapine, olanzapine, Buspirone and lithium for now, MS appears to be back to baseline, awake but not orientated
Hypertension - resumed propranolol with holding parameter
Hypothyroidism - resumed levothyroxine. Noted TSH 0.11, reflex FT4 at 1.35
DVT Px: SCDs
Code Status: DNR per [place] paperwork
Anticipated Discharge: > 48 hours
Subjective/Interval History
-
Date of Service: August 25, 2025
Did not appear to be in pain or distress
Objective Data
-
Labs:
Laboratory Results
08/25/25
06:33
WBC 14.7 H
Hgb 10.8 L
Hct 36.3 L
Plt Count 506 H
Sodium 153 H
Potassium 4.9
Chloride 119 H
Carbon Dioxide 27
BUN 31 H
Creatinine 1.0
Glucose 137 H
Calcium 9.5
Vital Signs:
Vital Signs
Temp Pulse Resp BP Pulse Ox
98.3 F 84 18 133/74 97
08/25/25 07:18 08/25/25 07:18 08/25/25 07:18 08/25/25 07:18 08/25/25 07:18
I&O
08/24/25 08/25/25 08/26/25
06:59 06:59 06:59
Intake Total 3050 / 3050 1250 / 1250
Balance 3050 / 3050 1250 / 1250
Review of Systems
-
Unable to obtain full review of systems at this time due to: Patient Non-verbal
History Source: Patient
Physical Exam
-
General: Comfortable and Appears Chronically Ill
HEENT: Atraumatic, Nose Appears Normal and Ears Appear Normal
Respiratory: Clear to Auscultation
Cardiac: Regular Rhythm and S1/S2
GI: Soft, Nontender and Nondistended
Musculoskeletal: No Clubbing, No Cyanosis and No Edema
Skin: Warm and Dry
Neuro: Awake and Alert
Psych: Calm
Data Reviewed
-
Labs: Labs Reviewed by me
[2025-08-25 15:00] VITALS: BP 136/78
--- NOTE | 2025-08-25 15:50 | W.PN.UPDATE ---
Update Note
Progress Note Update
Pt seen at bedside, calm and pleasant but unable to participate in very meaningful conversation. Speech is minimal and difficult to understand. Has been calm, no agitation noted. Difficult to clearly assess pts mood given limited ability to
interview, however no observable evidence of distress or mood instability at this time.
Continue to monitor, continue to defer lithium re-initiation unless concerns for mood instability arise.
[2025-08-25 23:00] VITALS: BP 107/73
[2025-08-26] MEDS: D5W 1000 IV ×2 (05:50→23:50)
[2025-08-26] MEDS: SYNTHROID 75 MCG PO (05:51)
[2025-08-26 06:33] LABS: Hematocrit 36.9 % (37.0-47.0); Hemoglobin 10.9 g/dL (12.0-16.0); Mean Corp Hgb Conc. 29.5 g/dL (33.0-37.0); Mean Corpuscular Volume 96.1 fL (81.0-99.0); Nucleated Red Blood Cells % 0 %; Platelet Count 498 10^3/uL (130-400); Red Cell Dist. Width 15.5 % (11.5-14.5)
[2025-08-26 06:50] LABS: Blood Urea Nitrogen 30 mg/dl (7-17); Calcium 9.7 mg/dl (8.4-10.2); Carbon Dioxide 27 mmol/L (22-30); Chloride 122 mmol/L (98-107); Glucose 99 mg/dl (70-99); Potassium 4.8 mmol/L (3.5-5.1); Sodium 155 mmol/L (135-145); eGFR > 60.00
[2025-08-26 08:00] VITALS: BP 136/68
[2025-08-26] MEDS: TEGRETOL 400 MG PO ×2 (08:11→19:50)
--- NOTE | 2025-08-26 10:45 | W.PN.HOSP.TC ---
Today's Communication/Plan
-
Check UA
Assessment / Plan
Assessment / Plan
69 yo F from local longterm with PMH of
Developmental delay,
ischemic CVA with dysphagia,
residual aphasia,
Left Hemiplegia,
essential HTN,
Schizophrenia,
bipolar,
Seizure Disorder,
hypothyroidism,
Stercoral colitis,
LGIB,
chronic Anemia;
p/w decreased responsiveness. She was minimally verbal but seems to follow simple commands
A/P:
1. Acute metabolic encephalopathy/Hypoactive delirium, - improving
multifactorial: [place] toxicity, concern for UTI, dehydration/hypernatremia, CARA/uremia, possible overmedications
CT head negative
Urine culture grew E coli, s/p ceftriaxone x3 days
continue to hold ELECTROPHYSIOLOGY TECHNOLOGIST mirtazapine, olanzapine, Buspirone and lithium,
MS appears to be back to baseline, which is awake but not orientated/conversant
WBC going back up - recheck UA
If UA looks infected, restart ceftriaxone
Isolate that grew was sensitive to everything
2. Dehydration with Hypernatremia - improving
Complicated by CARA , which is also improved
SCr 1.3 -> 1.0 -> 1.0 today (baseline 0.8)
sodium level back to 155 today
restarted D5W for hypernatremia
3. [place] toxicity - resolving
Hold [place] level now low
Psych consult appreciated
4. Likely chronic dysphagia
Continue pureed diet per SPL
5. Leucocytosis, possible due to UTI with a component of being reactive - resolving
Today 14.7 --> 17.0
Recheck UA
Monitor CBC
Other chronic medical conditions:
Chronic Anemia
HX Ischemic Stroke with Residual Aphasia, Left Hemiplegia and Dysphagia
Seizure Disorder - resume carbamazepine with level WNL
Mood Disorder - hold ELECTROPHYSIOLOGY TECHNOLOGIST mirtazapine, olanzapine, Buspirone and lithium for now, MS appears to be back to baseline, awake but not orientated
Hypertension - resumed propranolol with holding parameter
Hypothyroidism - resumed levothyroxine. Noted TSH 0.11, reflex FT4 at 1.35
DVT Px: SCDs
Code Status: DNR per [place] paperwork
Anticipated Discharge: 24 - 48 hours
Subjective/Interval History
-
Date of Service: August 26, 2025
Comfortable
Objective Data
-
Labs:
Laboratory Results
08/26/25
06:08
WBC 17.0 H
Hgb 10.9 L
Hct 36.9 L
Plt Count 498 H
Sodium 155 H
Potassium 4.8
Chloride 122 H
Carbon Dioxide 27
BUN 30 H
Creatinine 0.9
Glucose 99
Calcium 9.7
Vital Signs:
Vital Signs
Temp Pulse Resp BP Pulse Ox
98.1 F 88 20 136/68 95
08/26/25 08:00 08/26/25 08:00 08/26/25 08:00 08/26/25 08:00 08/26/25 08:00
I&O
08/25/25 08/26/25 08/27/25
06:59 06:59 06:59
Intake Total 1250 / 1250 480 / 480
Balance 1250 / 1250 480 / 480
Review of Systems
-
Unable to obtain full review of systems at this time due to: Patient Non-verbal
Physical Exam
-
General: Well Developed, Well Nourished, No Apparent Distress, Comfortable and Appears Chronically Ill
HEENT: Atraumatic, Nose Appears Normal and Ears Appear Normal
Respiratory: Clear to Auscultation
Cardiac: Regular Rhythm and S1/S2
GI: Soft, Nontender and Nondistended
Musculoskeletal: No Clubbing and No Cyanosis
Skin: Warm and Dry
Neuro: Awake
Psych: Calm
Data Reviewed
-
Labs: Labs Reviewed by me
--- NOTE | 2025-08-26 15:16 | W.PN.UPDATE ---
Update Note
Progress Note Update
patient seen chart reviewed. spoke with nursing. patient sitting up in bed having eaten much of her lunch. she said something to me but i am not sure i understood properly. it sounded as thought she said that she wanted to go home. it is my
understanding that family not happy with her current nh. at this point she takes on ly tegretol. level is on the low side 4.7. would not restart any psych meds at this time. psych will sign off. if her condition changes and reassessment of psych
issues is needed please consult again.
[2025-08-26 15:49] VITALS: BP 114/72
[2025-08-26 18:07] LABS: Urine Character Clear (Clear)
[2025-08-26 18:24] LABS: Urine Red Blood Cell 0-2 /HPF (0-2); Urine Squamous Cell 0-2 /LPF (Few)
[2025-08-26 23:00] VITALS: BP 125/83
[2025-08-27] MEDS: SYNTHROID 75 MCG PO (05:36)
[2025-08-27 07:58] LABS: Hematocrit 35.1 % (37.0-47.0); Hemoglobin 10.4 g/dL (12.0-16.0); Mean Corp Hgb Conc. 29.6 g/dL (33.0-37.0); Mean Corpuscular Volume 94.4 fL (81.0-99.0); Nucleated Red Blood Cells % 0 %; Platelet Count 452 10^3/uL (130-400); Red Cell Dist. Width 15.2 % (11.5-14.5)
[2025-08-27 08:17] VITALS: BP 125/90
[2025-08-27 08:31] LABS: Blood Urea Nitrogen 24 mg/dl (7-17); Calcium 9.2 mg/dl (8.4-10.2); Carbon Dioxide 27 mmol/L (22-30); Chloride 113 mmol/L (98-107); Glucose 121 mg/dl (70-99); Potassium 4.2 mmol/L (3.5-5.1); Sodium 146 mmol/L (135-145); eGFR > 60.00
[2025-08-27] MEDS: TEGRETOL 400 MG PO ×2 (08:39→20:04)
--- NOTE | 2025-08-27 11:18 | CM ---
CM reviewed chart, reviewed with Hospitalist.
Patient seen bedside.
Updated clinicals sent through [facility] to [facility].
CM will continue to follow for all d.c planning needs.
Plan; return to [facility], will require ambulance transport
[facility]
Report: [phone], ask for third floor nurses station
[2025-08-27] MEDS: STERILE WATER FOR INJECTION 10 ML IV (12:16)
[2025-08-27] MEDS: ROCEPHIN 1000 MG IV (12:16)
[2025-08-27 16:46] VITALS: BP 124/61
--- NOTE | 2025-08-27 16:46 | W.PN.HOSP.TC ---
Today's Communication/Plan
-
continue UTI tx
continue IVF
Assessment / Plan
Assessment / Plan
Assessment:
Acute metabolic encephalopathy/Hypoactive delirium, - improving
- multifactorial: [place] toxicity, concern for UTI, dehydration/hypernatremia, CARA/uremia, possible overmedications
- CT negative
- holding RUBY [employer] RA[employer] SOFTWARE DEVELOPER mirtazapine, olanzapine, Buspirone and lithium after psych evaluation
- MS appears to be back to baseline, which is awake but not orientated/conversant
E. coli UTI
- continue Rocephin to complete 5 total days of treatment (received 3 doses earlier in hospitalization)
Dehydration with Hypernatremia - improving
CARA - improving
- Na 146
- continue D5W and correct FWD which is now 1.0L
[place] toxicity - resolving
- stop [place] per Psych
Likely chronic dysphagia
- continue pureed diet per SPL
Chronic Anemia
Hx of Ischemic Stroke with Residual Aphasia, Left Hemiplegia and Dysphagia
Seizure Disorder - continue carbamazepine
Hx of Developmental delay/Mood Disorder/schizophrenia/Bipolar d/o - hold RUBY [employer] RAIL[employer] SOFTWARE DEVELOPER mirtazapine, olanzapine, Buspirone and lithium for now, MS appears to be back to baseline, awake but not orientated
Hypertension - BP stable off meds
Hypothyroidism - resumed levothyroxine.
DVT ppx: SCDs
Code Status: DNR/DNI per [place] paperwork
Anticipated Discharge: > 48 hours
Subjective/Interval History
-
Date of Service: August 27, 2025
resting comfortably
no acute events overnights
Objective Data
-
Labs:
Laboratory Results
08/27/25
07:16
WBC 11.8 H
Hgb 10.4 L
Hct 35.1 L
Plt Count 452 H
Sodium 146 H D
Potassium 4.2
Chloride 113 H
Carbon Dioxide 27
BUN 24 H
Creatinine 0.8
Glucose 121 H
Calcium 9.2
Vital Signs:
Vital Signs
Temp Pulse Resp BP Pulse Ox
97.6 F 81 18 125/90 99
08/27/25 08:17 08/27/25 08:17 08/27/25 08:17 08/27/25 08:17 08/27/25 08:17
I&O
08/26/25 08/27/25 08/28/25
06:59 06:59 06:59
Intake Total 480 / 480 2400 / 2400
Output Total 500 / 500
Balance 480 / 480 1900 / 1900
Physical Exam
-
General: No Apparent Distress
HEENT: Normocephalic and Atraumatic
Respiratory: Negative Wheezes
Cardiac: Regular Rhythm and S1/S2
GI: Soft
Genito-urinary: No Costovertebral Tender
Neuro: AO x 3
Psych: Calm
Data Reviewed
-
Total Time Spent with Patient (in minutes): 42
Labs: Labs Reviewed by me
[2025-08-27] MEDS: D5W 1000 IV (18:24)
[2025-08-27 22:48] VITALS: BP 126/80
[2025-08-28] MEDS: SYNTHROID 75 MCG PO (05:43)
[2025-08-28 07:00] VITALS: BP 118/64
[2025-08-28 07:19] LABS: Hematocrit 35.1 % (37.0-47.0); Hemoglobin 10.4 g/dL (12.0-16.0); Mean Corp Hgb Conc. 29.6 g/dL (33.0-37.0); Mean Corpuscular Volume 93.9 fL (81.0-99.0); Platelet Count 461 10^3/uL (130-400); Red Cell Dist. Width 15.1 % (11.5-14.5)
[2025-08-28 07:47] LABS: Blood Urea Nitrogen 19 mg/dl (7-17); Calcium 9.1 mg/dl (8.4-10.2); Carbon Dioxide 29 mmol/L (22-30); Chloride 112 mmol/L (98-107); Glucose 93 mg/dl (70-99); Potassium 4.3 mmol/L (3.5-5.1); Sodium 146 mmol/L (135-145); eGFR > 60.00
[2025-08-28] MEDS: D5W 1000 IV (08:47)
[2025-08-28] MEDS: TEGRETOL 400 MG PO (08:48)
[2025-08-28 09:19] VITALS: BMI 15.7
[2025-08-28] MEDS: ROCEPHIN 1000 MG IV (11:44)
[2025-08-28] MEDS: STERILE WATER FOR INJECTION 10 ML IV (11:44)
--- NOTE | 2025-08-28 12:27 | W.PN.HOSP.TC ---
Today's Communication/Plan
-
dc back to NH
Assessment / Plan
Assessment / Plan
Assessment:
Acute metabolic encephalopathy/Hypoactive delirium, - improving
- multifactorial: [place] toxicity, concern for UTI, dehydration/hypernatremia, CARA/uremia, possible overmedications
- CT negative
- holding LEATHER GRADER mirtazapine, olanzapine, Buspirone and lithium after psych evaluation
- MS appears to be back to baseline, which is awake but not orientated/conversant
E. coli UTI
- completed 5 day Rocephin course
Dehydration with Hypernatremia - improving
CARA - improving
- Na 146 and stable
- encourage oral hydration
[place] toxicity - resolving
- stop [place] per Psych
Likely chronic dysphagia
- continue pureed diet per SPL
Chronic Anemia
Hx of Ischemic Stroke with Residual Aphasia, Left Hemiplegia and Dysphagia
Seizure Disorder - continue carbamazepine
Hx of Developmental delay/Mood Disorder/schizophrenia/Bipolar d/o - hold LEATHER GRADER mirtazapine, olanzapine, Buspirone and lithium for now, MS appears to be back to baseline, awake but not orientated
Hypertension - BP stable off meds
Hypothyroidism - resumed levothyroxine.
DVT ppx: SCDs
Code Status: DNR/DNI per [place] paperwork
More than 30 minutes spent in discharge including
Final examination of the patient
Summarizing hospital stay
Instructions for continuing care to all relevant caregivers
Preparation of discharge records, prescriptions, and referral forms
Total time spent (in minutes): 41
Anticipated Discharge: Today
Subjective/Interval History
-
Date of Service: August 28, 2025
no overnight events
Objective Data
-
Labs:
Laboratory Results
08/28/25 08/28/25
06:47 15:00
WBC 9.4
Hgb 10.4 L
Hct 35.1 L
Plt Count 461 H
Sodium 146 H Pending
Potassium 4.3 Pending
Chloride 112 H Pending
Carbon Dioxide 29 Pending
BUN 19 H Pending
Creatinine 0.8 Pending
Glucose 93 Pending
Calcium 9.1 Pending
Vital Signs:
Vital Signs
Temp Pulse Resp BP Pulse Ox
97.7 F 76 16 118/64 97
08/28/25 07:00 08/28/25 07:00 08/28/25 07:00 08/28/25 07:00 08/28/25 07:00
I&O
08/27/25 08/28/25 08/29/25
06:59 06:59 06:59
Intake Total 2400 / 2400 1280 / 1280
Output Total 500 / 500
Balance 1900 / 1900 1280 / 1280
Physical Exam
-
General: No Apparent Distress
HEENT: Normocephalic and Atraumatic
Respiratory: Negative Wheezes
Cardiac: Regular Rhythm and S1/S2
GI: Soft
Genito-urinary: No Costovertebral Tender
Neuro: AO x 3
Psych: Calm
Data Reviewed
-
Total Time Spent with Patient (in minutes): 41
Labs: Labs Reviewed by me
--- NOTE | 2025-08-28 12:37 | W.DS.TRANS ---
DC Summary - Marketing Support Assistant
-
Discharge Instructions:
Discharge Diagnosis/Procedures Dehydration with hypernatremia and acute kidney
injury;
[place] toxicity;
Confusion/hypoactive delirium (resolved);
UTI with E. coli (treated)
Diet As tolerated,Other diet
Additional Diets Pureed diet
Driving Restrictions No driving
Instructions:
Stand-Alone Forms:
Changes to Home Medications: No
Discharge Medications:
DC Medications w/original date entered in [facility]
acetaminophen 325 mg tablet 650 mg PO Q6HPRN PRN elevated temperature>100 05/08/16
levothyroxine 75 mcg tablet 75 mcg PO DAILY Thyroid 03/21/21
loperamide 2 mg tablet (Imodium A-D) 2 mg PO Q6HPRN PRN diarrhea 08/12/23
magnesium oxide 400 mg PO NOON Supplement 08/12/23
metronidazole 1 % topical cream 1 applic topical [id number] PRN rash 08/12/23
Eucerin 1 applic topical Q6HPRN PRN dry skin 03/28/24
calcium carbonate 1,000 mg PO Q8H PRN indigestion 03/28/24
cholecalciferol (vitamin D3) 50 mcg (2,000 unit) tablet 50 mcg PO NOON Supplement 03/28/24
magnesium hydroxide 400 mg/5 mL oral suspension (Milk of Magnesia) 30 ml PO [id number] PRN constipation 03/28/24
sennosides 8.6 mg-docusate sodium 50 mg tablet (Senna-S) 1 tab-cap PO NOON Constipation 03/28/24
sennosides 8.6 mg-docusate sodium 50 mg tablet (Senna-S) 2 tab-cap PO QPM Constipation 03/28/24
bisacodyl 10 mg rectal suppository (Dulcolax (bisacodyl)) 10 mg TN HSPRN PRN Constipation #50 ea 03/29/24
calcium carbonate 600 mg PO DAILY Supplement 08/21/25
carbamazepine 200 mg tablet (Tegretol) 400 mg PO BID Seizures 08/21/25
ketoconazole 2 % topical cream 1 applic topical Q12H PRN irritation 08/21/25
polyethylene glycol 3350 17 gram/dose oral powder (Miralax) 17 g PO DAILY PRN constipation 08/21/25
Home Medication Changes
Pending Results: No
Total time spent discharging patient (in min): 41
--- NOTE | 2025-08-28 13:03 | CM ---
Patient has been medically cleared for discharge back to [facility] for resumption of LTC. Ambulance transport scheduled for 5:00 PM. Brother Fabio notified. Primary contact sister Sarah has restricted calls. Unable to reach her.
Nurse to Nurse report #: [phone], Ask for the 3rd floor nurses station
Fax #: [phone]
[2025-08-28 14:41] LABS: Blood Urea Nitrogen 21 mg/dl (7-17); Calcium 8.8 mg/dl (8.4-10.2); Carbon Dioxide 31 mmol/L (22-30); Chloride 107 mmol/L (98-107); Glucose 113 mg/dl (70-99); Potassium 4.1 mmol/L (3.5-5.1); Sodium 142 mmol/L (135-145); eGFR > 60.00
[2025-08-28 15:00] VITALS: BP 95/58
--- NOTE | 2025-08-28 15:59 | PTCARENOTE ---
Left for [facility], to provide receiving nurses with report. Return phone number provided. Will attempt to call again, if no return phone call received back from facility
--- NOTE | 2025-08-28 17:48 | TRANSFER ---
Report called to [facility]. IV removed. Last dose completed and paperwork printed. Transport via ambulance van to [facility], now.
== END 2025-08-28 17:56 | DRG 871 ==
LOC: 4 WEST ACU 22:05
PROVIDERS: Internal Medicine; ADMITTING PHYSICIAN Internal Medicine; ATTENDING PHYSICIAN Internal Medicine; CONSULT PHYSICIAN Psychiatry & Neurology Psychiatry; EMERGENCY PHYSICIAN Emergency Medicine; FAMILY PHYSICIAN Internal Medicine
DX: A41.9 Sepsis, unspecified organism (principal); G93.41 Metabolic encephalopathy; N17.9 Acute kidney failure, unspecified; N39.0 Urinary tract infection, site not specified; I69.354 Hemiplegia and hemiparesis following cerebral infarction affecting left non-dominant side; E87.0 Hyperosmolality and hypernatremia; R64 Cachexia; T43.595A Adverse effect of other antipsychotics and neuroleptics, initial encounter; I10 Essential (primary) hypertension; Z66 Do not resuscitate; B96.20 Unspecified Escherichia coli [E. coli] as the cause of diseases classified elsewhere; E03.9 Hypothyroidism, unspecified; F20.9 Schizophrenia, unspecified; F31.9 Bipolar disorder, unspecified; E86.0 Dehydration; D64.9 Anemia, unspecified; R62.50 Unspecified lack of expected normal physiological development in childhood; I69.320 Aphasia following cerebral infarction; I69.391 Dysphagia following cerebral infarction; Z79.899 Other long term (current) drug therapy; Z11.52 Encounter for screening for COVID-19
CPT/HCPCS: 51701; 70450; 71046; 80048; 80053; 80156; 80178; 81003; 81015; 82962; 83036; 83735; 84439; 84443; 85025; 85027; 87070; 87077; 87086; 87186; 92526; 92610; 93005; 96361; 96365; 99285